=== PATIENT | male | born 1950 | race Caucasian/White ===

== ENCOUNTER 2016-11-05 14:11 | Observation (INO) ==
[2016-11-05] MEDS ORDERED: Naloxone 0.4 MG/ML INJ IVP PRN (16:13)
[2016-11-05] MEDS ORDERED: Ondansetron 4 MG/2 ML VIAL IVP PRN (16:13)
[2016-11-05] MEDS ORDERED: Ketorolac 15 MG/ML VIAL IVP PRN (16:13)
[2016-11-05] MEDS: *HR* Promethazine 25 MG/ML VIAL IVP PRN (16:37)
[2016-11-05] MEDS: *HR* HYDROmorphone (PF) 1 MG/ML SYRINGE IVP PRN ×2 (16:37→22:53)
[2016-11-05] MEDS: Gabapentin 400 MG CAPSULE PO SCH ×2 (16:37→22:48)
--- NOTE | 2016-11-05 17:03 | Urology History & Physical ---
Date of Encounter: 11/05/16 Time of Encounter: 17:01 Assessment and Plan (1) Ureteral stone with hydronephrosis Current Visit: Yes Status: Acute we discussed trial of passage bc the stone is 5 mm. the pain has been too severe for him to attempt trial of passage and he requires surgical intervention. will proceed with a ureteroscopic stone extraction. he understands there is a 10% chance I will not be able to reach or extract the stone and would require a 2nd surgery. we discussed risk for injury to the urinary tract, perforation, stricture, stent complications/discomfort, UTI. we discussed ESWL as an alternative treatment. (2) Flank pain Current Visit: Yes Status: Acute History of Present Illness Chief complaint: flank pain HPI: Mr. Kuhn is a 65 year old male transferred from [facility] with a 5 mm proximal ureteral stone. labs OK but issues with soto control. no fever. N/V. no hx of stones. Medications and Allergies Clorazepate [Tranxene] 7.5 mg PO TID 11/05/16 [History] Gabapentin [Neurontin] 400 mg PO TID 11/05/16 [History] 3 Allergy/AdvReac Type Severity Reaction Status Date / Time No Known Allergies Allergy Verified 11/05/16 16:09 Review of Systems - Constitutional no chills, no fever(s) - EENT Nose, mouth and throat: no dizziness - Cardiovascular no chest pain, no dyspnea - Respiratory no cough - Gastrointestinal abdominal pain, nausea, vomiting - Genitourinary flank pain - Musculoskeletal back pain - Integumentary no erythema - Neurological no confusion - Psychiatric no anxiety - Hematologic/Lymphatic no easy bleeding - Allergic/Immunologic no throat swelling Exam Initial Vital Signs Temp Pulse Resp BP Pulse Ox 98.1 F 78 16 171/93 95 11/05/16 16:08 11/05/16 16:08 11/05/16 16:08 11/05/16 16:08 11/05/16 16:08 - General physical appearance Present: well developed, no distress, moderate pain - Eyes Present: PERRL - ENT Present: normal nares - Neck Present: no masses - Respiratory Present: normal respiratory effort - Cardiovascular Cardiovascular exam IM: RRR - Abdomen Abdomen: Present: soft - Integumentary Present: no rash - Neurologic Present: normal coordination. Absent: disoriented, confused - Musculoskeletal Present: normal gait Urology Results - Labs All other labs normal.
[2016-11-05 17:13] LABS: Basophils % 0.4 %; Eosinophils # 0.1 K/mcL (0.0-0.6); Eosinophils % 1.1 %; Hematocrit 45.1 % (37.5-50.1); Hemoglobin 14.5 g/dL (12.9-16.9); Immature Granulocytes % 0.3 % (0-4); Lymphocytes # 1.9 K/mcL (0.6-4.6); Lymphocytes % 20.4 %; Mean Corpuscular HGB Conc 32.2 g/dL (31.6-35.5); Mean Corpuscular Hemoglobin 30.1 pg (28.0-33.3); Mean Corpuscular Volume 93.8 fL (83.0-100.0); Mean Platelet Volume 10.9 fL (9.4-12.4); Monocytes # 0.7 K/mcL (0.0-1.3); Monocytes % 7.1 %; Neutrophils # 6.5 K/mcL (1.6-8.9); Platelet Count 253 K/mcL (140-400); Red Blood Count 4.81 M/mcL (4.19-5.50); Red Cell Distribution Width 12.1 % (11.5-14.5); Segmented Neutrophils % 70.7 %
[2016-11-05 17:20] LABS: BUN/Creatinine Ratio 12 (6-26); Blood Urea Nitrogen 16 mg/dL (8-26); Calcium 8.4 mg/dL (8.6-10.8); Carbon Dioxide 24 mEq/L (19-29); Chloride 107 mEq/L (98-109); Glucose 113 mg/dL (70-99); Osmolality,Calculated 290 (280-300); Potassium 3.8 mEq/L (3.5-4.5); Sodium 139 mEq/L (136-145); eGFR For African Americans > 60 (> 60); eGFR For Non-African Americans 52 (> 60)
[2016-11-05] MEDS ORDERED: *HR* HYDROcodone/Acet 5/325 mg TABLET PO PRN (20:00)
--- NOTE | 2016-11-06 07:24 | Urology Progress Note ---
Date of Encounter: 11/06/16 Time of Encounter: 07:23 - Assessment and Plan (1) Ureteral stone with hydronephrosis Current Visit: Yes Status: Acute Assessment and plan: proceed with stone extraction today (2) Flank pain Current Visit: Yes Status: Acute Progress Note Subjective: pain is less Narrative: resting comfortably overnight. Objective Initial Vital Signs Temp Pulse Resp BP Pulse Ox 98.1 F 78 16 171/93 95 11/05/16 16:08 11/05/16 16:08 11/05/16 16:08 11/05/16 16:08 11/05/16 16:08 - General physical appearance Present: well developed, no distress - Labs 11/05/16 16:32 11/05/16 16:32 Diabetes panel 11/05/16 Range/Units 16:32 Sodium 139 (136-145) mEq/L Potassium 3.8 (3.5-4.5) mEq/L Chloride 107 (98-109) mEq/L Carbon Dioxide 24 (19-29) mEq/L BUN 16 (8-26) mg/dL Creatinine 1.36 H (0.72-1.25) mg/dL Glucose 113 H (70-99) mg/dL Calcium 8.4 L (8.6-10.8) mg/dL Calcium panel 11/05/16 Range/Units 16:32 Calcium 8.4 L (8.6-10.8) mg/dL Pituitary panel 11/05/16 Range/Units 16:32 Sodium 139 (136-145) mEq/L Potassium 3.8 (3.5-4.5) mEq/L Chloride 107 (98-109) mEq/L Carbon Dioxide 24 (19-29) mEq/L BUN 16 (8-26) mg/dL Creatinine 1.36 H (0.72-1.25) mg/dL Glucose 113 H (70-99) mg/dL Calcium 8.4 L (8.6-10.8) mg/dL Adrenal panel 11/05/16 Range/Units 16:32 Sodium 139 (136-145) mEq/L Potassium 3.8 (3.5-4.5) mEq/L Chloride 107 (98-109) mEq/L Carbon Dioxide 24 (19-29) mEq/L BUN 16 (8-26) mg/dL Creatinine 1.36 H (0.72-1.25) mg/dL Glucose 113 H (70-99) mg/dL Calcium 8.4 L (8.6-10.8) mg/dL Consult Discharge Plan - Plan Referrals: Yakov Aguirre MD [Partnered Physician] -
[2016-11-06] MEDS ORDERED: 0.9 % Sodium Chloride 1,000 ML IVC SCH ×2 (07:30→16:42)
[2016-11-06] MEDS: Gabapentin 400 MG CAPSULE PO SCH (07:46)
[2016-11-06] MEDS: *HR* Promethazine 25 MG/ML VIAL IVP PRN (07:46)
[2016-11-06] MEDS: *HR* HYDROmorphone (PF) 1 MG/ML SYRINGE IVP PRN ×2 (07:46→11:53)
--- NOTE | 2016-11-06 13:30 | Anesthesia Evaluation PreOp ---
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 Other Medical History: Denies Any Significant HX Anesthesia History: No Prior Anesthetic Complications, Past Anesthesia Alcohol Use: none Drug use: none Medications and Allergies Clorazepate [Tranxene] 7.5 mg PO TID 11/05/16 [History] Gabapentin [Neurontin] 400 mg PO TID 11/05/16 [History] 3 Allergy/AdvReac Type Severity Reaction Status Date / Time No Known Allergies Allergy Verified 11/05/16 16:09 - Meds/Allergy Pre-op Review Medications Reviewed: Yes Allergies Reviewed: Yes Beta Blockers on Current Med List: No Anesthesia Results - Labs 11/05/16 16:32 11/05/16 16:32 Anesthesia Exam O2 Sat Weight 77.7 kg O2 Sat by Pulse Oximetry 93 O2 Sat by Pulse Oximetry 93 O2 Sat by Pulse Oximetry 93 O2 Sat by Pulse Oximetry 95 O2 Sat by Pulse Oximetry 96 O2 Sat by Pulse Oximetry 95 Vital Signs Temp Pulse Resp BP Pulse Ox 98.1 F 78 16 171/93 95 11/05/16 16:08 11/05/16 16:08 11/05/16 16:08 11/05/16 16:08 11/05/16 16:08 Vital Signs/O2 Sat/Glucose, Most Current Temp Pulse Resp BP Pulse Ox 11/06/16 11:43 99.5 F 91 18 156/88 93 Weight: 77 NPO (# of Hours): >8 Anesthesia Assess/Plan ASA Score: 2 Modified [place] Scale for Level of Consciousness: Cooperative, oriented, and tranquil Anesthetic Plan: General Monitoring Plan: Standard Monitors Recovery Plan: PACU <Katie Arreola - Last Filed: 11/06/16 14:08> Date of Encounter: 11/06/16 - Past History Other Medical History: Renal (renal stones in the past) Anesthesia History: Past Anesthesia (hernia, back surgery, shock-wave lithrotripsy, tonsils), Problems (vertigo after lithrotripsy; otherwise no complications; did well after all other surgeries) Anesthesia Results - Labs 11/05/16 16:32 11/05/16 16:32 Anesthesia Exam - HEENT Pupil (Motor): Pupils equal, EOMI Mallampati: III Teeth: Normal Oral Opening: Greater than 3 - 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
[2016-11-06] MEDS ORDERED: *HR* FentaNYL (PF) 100 MCG/2 ML VIAL ONE (13:41)
[2016-11-06] MEDS ORDERED: *HR* Propofol 200 MG/20 ML VIAL IVP ONE (13:42)
[2016-11-06] MEDS ORDERED: *HR* Midazolam HCl 2 MG/2 ML VIAL ONE (13:42)
[2016-11-06] MEDS ORDERED: Dexamethasone 4 MG/ML VIAL ONE (13:43)
[2016-11-06] MEDS ORDERED: Ondansetron 4 MG/2 ML VIAL ONE (13:43)
[2016-11-06] MEDS ORDERED: Lidocaine -MPF 2% 2 ML VIAL ONE (13:43)
[2016-11-06] MEDS ORDERED: Lidocaine -MPF 4% 5 ML AMPUL ONE (14:21)
[2016-11-06] MEDS ORDERED: *HR* Promethazine 25 MG/ML VIAL IVP PRN ×2 (15:02→16:42)
[2016-11-06] MEDS ORDERED: Dexamethasone 4 MG/ML VIAL IVP ONE (15:02)
[2016-11-06] MEDS ORDERED: *HR* Morphine 2 MG/ML SYRINGE IVP PRN (15:02)
[2016-11-06] MEDS ORDERED: Ondansetron 4 MG/2 ML VIAL IVP ONE (15:02)
[2016-11-06] MEDS ORDERED: *HR* Labetalol 20 MG/4 ML SYRINGE IVP PRN (15:02)
--- NOTE | 2016-11-06 15:45 | Operative Note ---
Date of procedure: 11/06/16 Pre-op diagnosis: Right proximal ureteral stone Post-op diagnosis: same Procedure: Right ureteroscopic stone extraction with holmium laser lithotripsy Right retrograde pyelogram Right double-J stent placement Anesthesia: GETA Surgeon: Yakov Aguirre Estimated blood loss (cc): 0 Specimen: Stone Condition: stable Disposition: PACU Procedure in Detail: PROCEDURE IN DETAIL: Patient was taken back to the operating room, positioned supine on the operating table. Anesthesia was applied without complication. They were moved into dorsal lithotomy. Careful attention was maintained to cushion all pressure points for patient's safety. They were prepped and draped in sterile fashion. Time-out was performed with the proper patient and procedure. A 21-Guamanian rigid cystoscope was inserted into the bladder without difficulty. Systematic examination of bladder revealed no abnormalities. The ureteral orifice was cannulated using a 5-Guamanian ureteral Catheter and a retrograde pyelogram was performed using Isovue. A filling defect was identified which corresponded to the stone in the mid to proximal ureter. At that point, a zip wire was placed through the 5-Guamanian and confirmed in the renal pelvis with fluoroscopy. An 8-10 dilator was then placed over the zip wire to passively dilate the ureteral orifice. A flexible ureteroscope was carefully inserted over the wire and into the ureter. The stone had migrated into the renal pelvis but I was able to guide the ureteroscope to its location. At that point, the stone was encountered and I felt that it required fragmentation for safe extraction. A 200 micron holmium laser fiber on a setting of 8 and 800 was used to fragment the stone into multiple pieces. The fragments were individually basketed out of the renal pelvis with a 1.9 tipless basket. All stone in the ureter was removed. A 4.8 x 26 ureteral stent was placed over the zip wire under fluoroscopy without complication. The bladder was drained along with the stone fragments. They were collected and sent for stone analysis. No string was left attached to the stent.
--- NOTE | 2016-11-06 15:48 | Discharge Summary ---
Date of Encounter: 11/06/16 Time of Encounter: 15:46 - Discharge Diagnosis (1) Ureteral stone with hydronephrosis Priority: Primary Status: Resolved (2) Flank pain Priority: Secondary Status: Resolved - Discharge Medications Prescriptions: HYDROcodone/Acet 5/325 mg [[place] 5-325 mg] 1 tab PO Q4HR PRN #15 tab PRN Reason: MODERATE PAIN Phenazopyridine HCl [Pyridium] 200 mg PO TIDAC PRN #20 tab PRN Reason: burning with urination Home Medications: Clorazepate [Tranxene] 7.5 mg PO TID 11/05/16 [History] Gabapentin [Neurontin] 400 mg PO TID 11/05/16 [History] HYDROcodone/Acet 5/325 mg [[place] 5-325 mg] 1 tab PO Q4HR PRN #15 tab 11/06/16 [ Rx] Phenazopyridine HCl [Pyridium] 200 mg PO TIDAC PRN #20 tab 11/06/16 [Rx] Allergies/Adverse Reactions: 3 Allergy/AdvReac Type Severity Reaction Status Date / Time No Known Allergies Allergy Verified 11/05/16 16:09 Labs on day of discharge: Labs from last 24 hours 11/05/16 11/05/16 16:32 16:32 WBC 9.1 RBC 4.81 Hgb 14.5 Hct 45.1 MCV 93.8 MCH 30.1 MCHC 32.2 RDW 12.1 Plt Count 253 MPV 10.9 Immature Gran % 0.3 Seg Neutrophils % 70.7 Lymphocytes % 20.4 Monocytes % 7.1 Eosinophils % 1.1 Basophils % 0.4 Neutrophils # 6.5 Lymphocytes # 1.9 Monocytes # 0.7 Eosinophils # 0.1 Basophils # 0.0 Sodium 139 Potassium 3.8 Chloride 107 Carbon Dioxide 24 BUN 16 Creatinine 1.36 H Est GFR ( Amer) > 60 Est GFR (Non-Af Amer) 52 L BUN/Creatinine Ratio 12 Glucose 113 H Calculated Osmolality 290 Calcium 8.4 L - Impressions ITS Impressions KUB X-Ray 11/05/16 16:16 IMPRESSION: 6 mm mid right ureteral calculus is in unchanged position. D/ /05/2016 19:08:26 Noemí Ward MD / [email or web address] Interpreting Provider: Noemí Ward MD Date of admission: 11/05/16 15:22 Primary care physician: Deisy Brannon CNP Discharging clinician: Yakov Aguirre Anticipated date of discharge: 11/06/16 - Patient Status Disposition: Home, Self-Care Condition: Good Functional capacity at discharge: independent ambulation Overall status at discharge: patient is progressing back to baseline - Discharge Instructions Follow Up With: Yakov Aguirre MD [Partnered Physician] - (2 weeks for cystoscopy and stent removal) Additional Instructions: Expect stent discomfort including urgency, frequency, burning on urination, blood in the urine and light pain in the flank. Call if symptoms are excessive Call if fever over 101 Stay hydrated with water as much as possible - Diet and Activity Activity: increase activity as tolerated Diet: advance to your usual diet - Hospital Course Hospital course: Mr. Kuhn is a 65 year old male status post ureteroscopic stone extraction and stent placement. No complications. Plan to discharge either tonight or tomorrow when pain is controlled and the patient is comfortable with discharge - Time Spent with Patient Total time spent providing and/or coordinating discharge services: Exam Initial Vital Signs Temp Pulse Resp BP Pulse Ox 98.1 F 78 16 171/93 95 11/05/16 16:08 11/05/16 16:08 11/05/16 16:08 11/05/16 16:08 11/05/16 16:08 - General physical appearance Present: well developed, no distress
--- NOTE | 2016-11-06 16:11 | Anesthesia Evaluation Post Op ---
Date of Encounter: 11/06/16 Time of Encounter: 16:11 - Vital Signs Vital Signs: Vital Signs/O2 Sat/Glucose, Most Current Temp Pulse Resp BP Pulse Ox 11/06/16 16:00 73 16 154/93 100 11/06/16 15:50 74 14 151/91 96 11/06/16 15:40 98.7 F 90 18 155/89 94 - Lungs Lungs: Clear Ascult./Percussion - Airway Airway: Non-obstructed - Cardiovascular Regular Rate - Mental Status Mental Status: Alert & Oriented, Answers Appropriately - Pain Pain Scale: 2 - Nausea Vomiting Nausea Vomiting: Not Present - Hydration Hydration: Ice chips - Discharge PostOp Status: Transfer Patient to floor
[2016-11-06] MEDS ORDERED: Ketorolac 15 MG/ML VIAL IVP PRN (16:42)
[2016-11-06] MEDS ORDERED: *HR* HYDROmorphone (PF) 1 MG/ML SYRINGE IVP PRN (16:42)
[2016-11-06] MEDS ORDERED: *HR* HYDROcodone/Acet 5/325 mg TABLET PO PRN (16:42)
[2016-11-06] MEDS ORDERED: Ondansetron 4 MG/2 ML VIAL IVP PRN (16:42)
[2016-11-06] MEDS ORDERED: Naloxone 0.4 MG/ML INJ IVP PRN (16:42)
[2016-11-06 19:00] VITALS: BP 158/90
[2016-11-06] MEDS ORDERED: Gabapentin 400 MG CAPSULE PO SCH (21:00)
== END 2016-11-06 20:00 | disposition home or self-care (01) ==
LOC: 3ANU
PROVIDERS: ADMIT Urology; ATTEND Urology

== ENCOUNTER 2017-04-09 03:05 | Observation (INO) ==
[2017-04-09] MEDS ORDERED: Aspirin 81 MG TAB.CHEW PO ONE (03:12)
[2017-04-09] MEDS ORDERED: Nitroglycerin 0.4 MG TAB.SUBL SL PRN (03:30)
--- NOTE | 2017-04-09 03:33 | Emergency Department Note ---
Disposition Clinical Impression: Chest pain, rule out acute myocardial infarction Disposition: Admitted As Inpatient Condition: Fair Referrals: Amita Dior CNP [Primary Care Provider] - Forms: ED Satisfaction Letter Time of Disposition: 05:47 Chest Pain HPI - General Chief Complaint: ED Chest Pain Stated Complaint: Chest/ABD/Back Pain Time Seen by Provider: 04/09/17 03:11 Source: patient Limitations: no limitations Vital Signs Reviewed: Yes Nursing Notes Reviewed: Yes - History of Present Illness HPI Narrative: Alert and oriented 66-year-old male presents for evaluation of diffuse anterior chest and epigastric pain that radiates into the back. Symptoms began at approximately 9:00 yesterday evening. He states his symptoms lasted close to one hour before resolution without intervention. He states that the pain returned just prior to arrival area he was at rest when both incidences occurred. He complains of associated diaphoresis but denies any fever, chills, nausea, vomiting, shortness of breath, cough, palpitations, or hemoptysis. He denies any diarrhea or constipation. He is unable to describe the pain but rates it a 10 out of 10 on a 10 point scale. He denies any known aggravating or alleviating factors. Pt complaint: chest pain Onset (ago): hour(s) Duration: gradually worsening Onset: during rest Pain Location: substernal, left chest, epigastric Severity: severe Severity scale (1-10): 10 Quality: other (Unable to describe) Pain Radiation: back Improves with: movement Worsens with: nothing Associated symptoms: Reports: diaphoresis. Denies: nausea, vomiting, dyspnea, syncope, palpitations, fever, cough Treatments prior to arrival chest pain: none - Related Data Home Medications Medication Instructions Recorded Confirmed Clorazepate [Tranxene] 7.5 mg PO TID 11/05/16 11/05/16 Gabapentin [Neurontin] 400 mg PO TID 11/05/16 11/05/16 Previous Rx's Medication Instructions Recorded HYDROcodone/Acet 5/325 mg [[place] 1 tab PO Q4HR PRN #15 tab 11/06/16 5-325 mg] Phenazopyridine HCl [Pyridium] 200 mg PO TIDAC PRN #20 tab 11/06/16 HYDROcodone/Acet 5/325 mg [[place] 1 tab PO Q6H PRN #12 tab 03/12/17 5-325 mg] Allergies Allergy/AdvReac Type Severity Reaction Status Date / Time No Known Allergies Allergy Verified 11/05/16 16:09 All systems ED: reviewed and negative except as stated. Constitutional: Denies: fever, chills, weakness, weight change Eyes: Denies: eye pain, eye discharge, vision change ENT ED: Denies: ear pain, throat pain, dental pain, hearing loss, epistaxis, congestion, dysphagia Cardiovascular: Reports: as per HPI, chest pain. Denies: palpitations, dyspnea on exertion, edema, syncope Respiratory: Denies: cough, dyspnea, wheezes, hemoptysis, stridor Gastrointestinal: Reports: as per HPI, abdominal pain. Denies: nausea, vomiting , diarrhea, constipation, hematemesis, melena, hematochezia Genitourinary: Denies: urgency, dysuria, frequency, hematuria Musculoskeletal: Denies: back pain, neck pain, arthralgia, myalgia Integumentary: Denies: rash, abrasion, lesions Neurological: Denies: headache, weakness, numbness, paresthesias, confusion, abnormal gait, vertigo Psychiatric: Denies: anxiety, depression, suicidal thoughts, homicidal thoughts , auditory hallucinations, visual hallucinations Endocrine: Denies: fatigue Hematological/Lymphatic: Denies: easy bleeding, easy bruising Allergic/Immunologic: Denies: facial swelling, urticaria Chest Pain PMH - Past Medical History Medical history: Reports: arthritis, kidney stones, migraine Surgical history: Reports: other Psychiatric history: Reports: anxiety, depression - Social History Smoking Status: Never smoker Alcohol use: Reports: none Drug use: Reports: none Physical Exam - General Limitations: no limitations General appearance: alert, in no apparent distress - Head Head exam: atraumatic, normocephalic, normal inspection - Eye Eye exam: Present: normal appearance, PERRL, EOMI. Absent: nystagmus - ENT ENT exam: mucous membranes moist - Neck Neck exam: Present: normal inspection, full ROM, trachea midline - Respiratory Respiratory exam: Present: normal lung sounds bilaterally. Absent: respiratory distress, wheezes, stridor, accessory muscle use, prolonged expiratory phase - Cardiovascular Cardiovascular exam: Present: regular rate, normal rhythm, normal heart sounds - Abdominal Exam Abdominal exam: Present: soft, tenderness, guarding, normal bowel sounds. Absent: distention, rebound, rigidity Abdominal tenderness: Present: diffuse - Extremities Exam Extremities exam: Present: normal inspection, full ROM. Absent: tenderness, pedal edema - Neurological Exam Neurological exam: Present: alert, oriented X3 - Psychiatric Psychiatric exam: Present: normal affect, normal mood - Skin Skin exam: Present: warm, dry, intact, normal color Course Course Narrative: 0325: Dr. Ansari, ED attending spoke with Dr. Dubois, 3rd mate regarding isolated ST elevation in lead V2. A copy of the patient' s EKG has been sent to Dr. Dubois for review and recommendations. We are currently awaiting a return call from him regarding this matter. 0358: After the patient stated complete resolution of chest and epigastric abdominal pain after a single nitroglycerin tablet, a repeat EKG was performed. The isolated ST elevation in lead V2 has resolved on repeat EKG. At the same time, Dr. Dubois, had returned a call regarding the initial EKG. Dr. Ansari discussed the resolution of ST elevation along with complete resolution of the patient's chest pain. Dr. Dubois stated that the patient does not meet criteria for ST elevation [place] however he does recommend the patient be began on heparin, aspirin, Aggrastat, and Plavix. - Reevaluation(s) Reevaluation #1: The patient states complete resolution of chest and abdominal pain after the administration of one sublingual nitroglycerin. Time: 03:53 Vital Signs Temperature 98.0 F 04/09/17 03:07 Pulse Rate 75 04/09/17 03:07 Respiratory Rate 18 04/09/17 03:07 Blood Pressure 200/101 04/09/17 03:07 O2 Sat by Pulse Oximetry 99 04/09/17 03:07 Temperature 98.0 F 04/09/17 03:07 Pulse Rate 73 04/09/17 05:09 Respiratory Rate 16 04/09/17 05:09 Blood Pressure 127/75 04/09/17 05:09 O2 Sat by Pulse Oximetry 96 04/09/17 05:09 Oxygen Delivery Oxygen Delivery Room Air Chest Pain - Medical Records Medical records reviewed: Yes I reviewed the patient's medical records. - Lab Data Lab results reviewed: Yes I reviewed the patient's lab results. Result diagrams: 04/09/17 04:04 04/09/17 04:04 Lab Results 04/09/17 04/09/1704/09/18 Range/Units 03:30 04:04 04:04 WBC 11.0 (4.3-11.1) K/mcL RBC 4.49 (4.19-5.50) M/mcL Hgb 13.9 (12.9-16.9) g/dL Hct 42.3 (37.5-50.1) % MCV 94.2 (83.0-100.0) fL MCH 31.0 (28.0-33.3) pg MCHC 32.9 (31.6-35.5) g/dL RDW 12.0 (11.5-14.5) % Plt Count 232 (140-400) K/mcL MPV 11.1 (9.4-12.4) fL Immature Gran % 0.4 (0-4) % Seg Neutrophils % 73.3 % Lymphocytes % 17.8 % Monocytes % 6.3 % Eosinophils % 1.7 % Basophils % 0.5 % Neutrophils # 8.1 (1.6-8.9) K/mcL Lymphocytes # 2.0 (0.6-4.6) K/mcL Monocytes # 0.7 (0.0-1.3) K/mcL Eosinophils # 0.2 (0.0-0.6) K/mcL Basophils # 0.1 (0.0-0.2) K/mcL PT 10.8 (9.4-12.1) Seconds INR 1.0 APTT 30.4 (26.0-36.0) Seconds Sodium (136-145) mEq/L Potassium (3.5-5.1) mEq/L Chloride (98-107) mEq/L Carbon Dioxide (23-29) mEq/L BUN (8-23) mg/dL Creatinine (0.70-1.30) mg/dL Est GFR ( Amer) (> 60) Est GFR (Non-Af Amer) (> 60) BUN/Creatinine Ratio (6-26) Glucose (70-105) mg/dL Calculated Osmolality (280-300) Calcium (8.6-10.3) mg/dL Total Bilirubin (0.3-1.0) mg/dL AST (13-39) Units/L ALT (7-52) Units/L Alkaline Phosphatase (34-104) Units/L Troponin I (< 0.04) ng/mL Serum Total Protein (6.4-8.9) g/dL Albumin (3.5-5.7) g/dL Globulin (2.4-3.5) g/dL Albumin/Globulin Ratio (1.1-2.2) Lipase (11-82) Units/L Urine Color Yellow (Yellow) Urine Clarity Cloudy A (Clear) Urine pH 7.5 (5.0-8.0) pH Units Ur Specific [place] 1.019 (1.010-1.025) Urine Protein Negative (Neg-Trace) mg/dL Urine Glucose (UA) Normal (Normal) mg/dL Urine Ketones Negative (Negative) mg/dL Urine Blood Negative (Negative) Urine Nitrite Negative (Negative) Urine Bilirubin Negative (Negative) Urine Urobilinogen Normal (Normal) mg/dL Ur Leukocyte Esterase Negative (Negative) Urine Microscopic RBC 0-3 (0-3) per hpf Urine Microscopic WBC 0-3 (0-3) per hpf Ur Squamous Epith Cells None Seen (None-Few) per lpf Urine Bacteria None Seen (None-Few) per hpf Hyaline Casts None Seen (None-Few) per lpf Ur Culture Indicated? NO (NO) 04/09/17 04/09/17 Range/Units 04:04 04:04 WBC (4.3-11.1) K/mcL RBC (4.19-5.50) M/mcL Hgb (12.9-16.9) g/dL Hct (37.5-50.1) % MCV (83.0-100.0) fL MCH (28.0-33.3) pg MCHC (31.6-35.5) g/dL RDW (11.5-14.5) % Plt Count (140-400) K/mcL MPV (9.4-12.4) fL Immature Gran % (0-4) % Seg Neutrophils % % Lymphocytes % % Monocytes % % Eosinophils % % Basophils % % Neutrophils # (1.6-8.9) K/mcL Lymphocytes # (0.6-4.6) K/mcL Monocytes # (0.0-1.3) K/mcL Eosinophils # (0.0-0.6) K/mcL Basophils # (0.0-0.2) K/mcL PT (9.4-12.1) Seconds INR APTT (26.0-36.0) Seconds Sodium 136 (136-145) mEq/L Potassium 3.7 (3.5-5.1) mEq/L Chloride 105 (98-107) mEq/L Carbon Dioxide 24 (23-29) mEq/L BUN 16 (8-23) mg/dL Creatinine 0.83 (0.70-1.30) mg/dL Est GFR ( Amer) > 60 (> 60) Est GFR (Non-Af Amer) > 60 (> 60) BUN/Creatinine Ratio 19 (6-26) Glucose 124 H (70-105) mg/dL Calculated Osmolality 285 (280-300) Calcium 8.9 (8.6-10.3) mg/dL Total Bilirubin 0.9 (0.3-1.0) mg/dL AST 164 H (13-39) Units/L ALT 99 H (7-52) Units/L Alkaline Phosphatase 97 (34-104) Units/L Troponin I < 0.03 (< 0.04) ng/mL Serum Total Protein 6.6 (6.4-8.9) g/dL Albumin 3.9 (3.5-5.7) g/dL Globulin 2.7 (2.4-3.5) g/dL Albumin/Globulin Ratio 1.4 (1.1-2.2) Lipase 113 H (11-82) Units/L Urine Color (Yellow) Urine Clarity (Clear) Urine pH (5.0-8.0) pH Units Ur Specific [place] (1.010-1.025) Urine Protein (Neg-Trace) mg/dL Urine Glucose (UA) (Normal) mg/dL Urine Ketones (Negative) mg/dL Urine Blood (Negative) Urine Nitrite (Negative) Urine Bilirubin (Negative) Urine Urobilinogen (Normal) mg/dL Ur Leukocyte Esterase (Negative) Urine Microscopic RBC (0-3) per hpf Urine Microscopic WBC (0-3) per hpf Ur Squamous Epith Cells (None-Few) per lpf Urine Bacteria (None-Few) per hpf Hyaline Casts (None-Few) per lpf Ur Culture Indicated? (NO) - Radiology Data Radiology results reviewed: Yes I reviewed the patient's radiology results. - EKG Data EKG attestation: Yes I reviewed and interpreted this EKG. EKG results narrative: EKG reviewed by Dr. Ansari as well. EKG shows a sinus rhythm at a rate of 74 bpm, MS interval 130, QRS duration 95, QT/QTc interval 355/383. No ectopy noted. Single isolated ST segment elevation noted in lead V2. Attestation Statement - Attestation Attestation: DR Ansari note: Pt seen in conjunction w/ PA Dinh [place]; please see his charting for complete documentation; I agree w/ pt's treatment and disposition; Please see his charting for complete documentation; face to face time spent w/ pt; case discussed on arrival w/ the interventional cardiology Dr Trejo due to ST elevation in lead v and he stated that the ekg did not meet criteria to call a STEMI, and requested the meds we gave; pt's pain and ekg changes resolved after 1 nitro tab; 1st troponin unremarkable; pt reports a prior cath w/o stents approx 5 yrs ago @ [facility];
[2017-04-09 04:04] LABS: Bilirubin,Urine Negative (Negative); Blood,Urine Negative (Negative); Clarity,Urine Cloudy (Clear); Color,Urine Yellow (Yellow); Glucose,Urine (UA) Normal (Normal); Ketones,Urine Negative (Negative); Leukocyte Esterase,Urine Negative (Negative); Nitrite,Urine Negative (Negative); PH,Urine 7.5 pH Units (5.0-8.0); Protein,Urine Negative (Neg-Trace); Specific Gravity,Urine 1.019 (1.010-1.025); Urobilinogen,Urine Normal (Normal)
[2017-04-09 04:14] LABS: Bacteria,Urine None Seen per hpf (None-Few); Hyaline Casts,Urine None Seen per lpf (None-Few); RBC,Urine 0-3 per hpf (0-3); Squamous Epithelial Cell,Urine None Seen per lpf (None-Few); WBC,Urine 0-3 per hpf (0-3)
[2017-04-09] MEDS ORDERED: *HR* Heparin 5,000 UNIT/ML VIAL IVP PRN ×2 (04:14)
[2017-04-09] MEDS ORDERED: *HR* Heparin 5,000 UNIT/ML VIAL IVP ONE (04:14)
[2017-04-09] MEDS ORDERED: Tirofiban 0.05 MG/1 ML (BOLUS FROM BAG) IV ONE (04:14)
[2017-04-09] MEDS ORDERED: Heparin 25,000 UNIT/500 ML D5W 25,000 UNIT/500 ML BAG IVC SCH (04:15)
[2017-04-09] MEDS ORDERED: Tirofiban 12.5 MG/250ML 12.5 MG/250 ML BAG IVC SCH (04:15)
[2017-04-09 04:22] LABS: Hematocrit 42.3 % (37.5-50.1); Hemoglobin 13.9 g/dL (12.9-16.9); Immature Granulocytes % 0.4 % (0-4); Lymphocytes % 17.8 %; Mean Corpuscular HGB Conc 32.9 g/dL (31.6-35.5); Mean Corpuscular Volume 94.2 fL (83.0-100.0); Mean Platelet Volume 11.1 fL (9.4-12.4); Platelet Count 232 K/mcL (140-400); Red Blood Count 4.49 M/mcL (4.19-5.50); Segmented Neutrophils % 73.3 %
[2017-04-09 04:23] LABS: Basophils # 0.1 K/mcL (0.0-0.2); Basophils % 0.5 %; Eosinophils # 0.2 K/mcL (0.0-0.6); Eosinophils % 1.7 %; Monocytes # 0.7 K/mcL (0.0-1.3); Monocytes % 6.3 %; Neutrophils # 8.1 K/mcL (1.6-8.9)
[2017-04-09 04:28] LABS: Prothrombin Time 10.8 Seconds (9.4-12.1)
[2017-04-09 04:31] LABS: Activated Partial Thrombo Time 30.4 Seconds (26.0-36.0)
[2017-04-09 04:37] LABS: Alanine Aminotransferase 99 Units/L (7-52); Albumin 3.9 g/dL (3.5-5.7); Albumin/Globulin Ratio 1.4 (1.1-2.2); Alkaline Phosphatase 97 Units/L (34-104); Aspartate Amino Transferase 164 Units/L (13-39); BUN/Creatinine Ratio 19 (6-26); Bilirubin,Total 0.9 mg/dL (0.3-1.0); Blood Urea Nitrogen 16 mg/dL (8-23); Calcium 8.9 mg/dL (8.6-10.3); Carbon Dioxide 24 mEq/L (23-29); Chloride 105 mEq/L (98-107); Glucose 124 mg/dL (70-105); Osmolality,Calculated 285 (280-300); Potassium 3.7 mEq/L (3.5-5.1); Sodium 136 mEq/L (136-145); Total Protein 6.6 g/dL (6.4-8.9); eGFR For African Americans > 60 (> 60); eGFR For Non-African Americans > 60 (> 60)
[2017-04-09 04:38] LABS: Globulin 2.7 g/dL (2.4-3.5); Lipase 113 Units/L (11-82)
[2017-04-09] MEDS: Gabapentin 400 MG CAPSULE PO SCH ×4 (08:28→23:44)
[2017-04-09] MEDS ORDERED: Naloxone 0.4 MG/ML INJ IVP PRN ×2 (08:35→08:36)
[2017-04-09] MEDS ORDERED: *HR* OxyCODONE Immed Rel 5 MG TABLET PO PRN (08:36)
[2017-04-09] MEDS ORDERED: Acetaminophen 325 MG TABLET PO PRN (08:36)
[2017-04-09] MEDS ORDERED: Ondansetron 4 MG/2 ML VIAL IVP PRN (08:36)
[2017-04-09 09:19] LABS: Chol/HDL Ratio 3.8 (0-4.9)
--- NOTE | 2017-04-09 09:27 | Internal Med History&Physical ---
Date of Encounter: 04/09/17 Time of Encounter: 09:26 Assessment and Plan (1) Angina pectoris Current visit: Yes Status: Acute EKG personally reviewed: NSR with no St segment changes X2 Per ER team, they had consulted with Dr. Jenkins, pig sticker drone operator last night who has ordered heparin, aggrastat and plavix. Initial troponin is negative, repeat troponin done at my time of review is negative. A1C is unremarkable Lipid panel is unremarkable CXR is clear. We will admit the patient to observation for angina work up pending cardiology evaluation, at this time, I believe he does not need the heparin and tirofaban drips, we will hold these till cardiology eval and continue ASA and lipitor. I have ordered an ECHO, patient will be kept NPO for a possible stress test if cardiology agrees. He is currently chest pain free, vital signs are stable. Dr. Velázquez has been paged (2) Chronic back pain Current visit: Yes Status: Chronic Continue home meds Qualifiers: Back pain location: back pain in unspecified location Back pain laterality : unspecified Qualified Code(s): M54.9 - Dorsalgia, unspecified; G89.29 - Other chronic pain; G89.29 - Other chronic pain (3) Ureteral stone with hydronephrosis Current visit: Yes Status: Chronic Chronic, stable (4) GERD (gastroesophageal reflux disease) Current visit: Yes Status: Chronic Start PPI avoid NSAIDS Patient has endoscopy and colonoscopy planned with PCP in one week No further interventions in this admission Qualifiers: Esophagitis presence: without esophagitis Qualified Code(s): K21.9 - Gastro -esophageal reflux disease without esophagitis Internal Medicine - H&P: HPI Chief complaint: Epigastric pain Admitted From: Home Plans for Post Hospital Care: Home History of present illness: Mr. Kuhn is a 66 year old male with PMH of nephrolithiasis and DJD with chronic neuralgia on gabapentin. The patient reports being in his usual state of health until yesterday while at rest. Developed acute sudden epigastric pain said to be 10 over 10 in severity , associated with diaphoresis, and radiating into his chest wall and his back. He denied associated shortness of breath, nausea, vomiting or impending doom. Chest pain did not radiate to his left arm or jaw. He reports that he has been having epigastric pain for about a year off and on however, yesterday the pain was uncontrolled and severe. There was no known relieving or aggravating factors. He did not have any neurologic symptoms associated. He is not physically active because of degenerative joint disease and chronic neuralgia. Patient reports having similar pain about 2 years ago and was worked up for cardiac etiology at an outside facility, Percocet to be negative. His chest pain was relieved by sublingual nitroglycerin in the ER. At the time of review, he has no chest pain. He denies family history of early cardiac disease or cardiac . He denies illicit drug use, he does not drink alcohol. He has never smoked He also reports occasional feeling of gas, he reports GERD like symptoms, no hematemesis or melena, he takes aleeve only ocassionally for his back pain, last use was over a year ago ROS is not contributory Past Med Surg Social Fam HX - Past Medical History Medical history: arthritis, kidney stones, migraine Psychiatric history: anxiety, depression - Past Surgical History Surgical History: other - Social History Smoking Status: Never smoker Smokeless Tobacco Status: No Alcohol use: none Drug use: none Internal Medicine - H&P: Meds Clorazepate [Tranxene] 7.5 mg PO TID 11/05/16 [History] Gabapentin [Neurontin] 400 mg PO TID 11/05/16 [History] 3 Allergy/AdvReac Type Severity Reaction Status Date / Time No Known Allergies Allergy Verified 11/05/16 16:09 All Systems PM: A 10-system review of systems was performed and is negative for pertinent findings except as documented above in the HPI. - Constitutional Constitutional: as per HPI - EENT Eyes: as per HPI Ears: as per HPI Nose, mouth and throat: as per HPI - Cardiovascular Cardiovascular ROS IM: as per HPI - Respiratory Respiratory: as per HPI - Gastrointestinal Gastrointestinal: as per HPI - Musculoskeletal Musculoskeletal ROS IM: as per HPI - Integumentary Integumentary IM: as per HPI - Neurological Neurological ROS: as per HPI - Hematologic/Lymphatic Hematologic/Lymphatic: no easy bruising - Constitutional Vitals: Temp Pulse Resp BP Pulse Ox 98.0 F 72 18 118/61 97 04/09/17 03:07 04/09/17 08:30 04/09/17 08:30 04/09/17 08:30 04/09/17 08:30 General appearance: Present: A&O X 3, pleasant, no acute distress Exam: Anxious appearing - Head Head exam: Present: atraumatic, normocephalic - Eye Eye exam: Present: PERRL, conjuntiva pink, sclera anicteric Pupils: Present: PERRL - Neck Neck exam general surgery: Present: supple, trachea midline. Absent: lymphadenopathy - Respiratory Respiratory exam: Present: CTAB. Absent: accessory muscle use, rales, rhonchi, wheezes - Cardiovascular Cardiovascular exam: Present: RRR, +S1, +S2. Absent: diastolic murmur, gallop, rubs, systolic murmur - GI/Abdominal GI/Abdominal exam: Present: normal bowel sounds, soft, no peritoneal signs. Absent: distended, tenderness - Extremities Exam Extremities exam: Present: warm, radial pulses palpable and symmetrical. Absent : calf tenderness, cyanotic, pedal edema - Neurological Exam Neurological exam: Present: alert, CN II-XII intact, oriented X3, no focal deficits. Absent: pronater drift, facial droop, speech deficit - Skin Skin exam: Present: dry, intact Internal Med - H&P Results - Labs CBC & Chem 7: 04/09/17 04:04 04/09/17 04:04 Labs: Cardiac Enzymes 04/09/17 Range/Units 08:58 Troponin I < 0.03 (< 0.04) ng/mL
[2017-04-09 09:31] LABS: Hemoglobin A1C 5.5 %
--- NOTE | 2017-04-09 11:12 | Cardiology Consult Note ---
Date of Encounter: 04/09/17 Time of Encounter: 11:05 Assessment and Plan (1) Chest pain Current Visit: Yes Status: Acute C/o mid epigastric pain radiating to his chest. Pain mildly improved with NTG. Troponin negative x2. EKG initially showed SR with isolated ST elevation in lead V2, not diagnostic of CO. Patient started on heparin gtt. Serial EKG showed SR with no ST elevation. Agree with discontinuing heparin gtt. LHC 3-4 years ago at [facility] showed no significant CAD. Will order records. Cardiac risk factors include HLD and newly diagnosed HTN. TTE pending. Discussed with Dr. Velázquez, recommend stress test for further evaluation. Stress test in AM. Continue asa, statin, and bb for now as already started. Qualifiers: Chest pain type: unspecified Qualified Code(s): R07.9 - Chest pain, unspecified Discussion w patient/family: The assessment and plan as outlined above was discussed with the patient and/or family members who expressed understanding and agreement. All questions were answered. Thank you for involving us in the care of your patient. Please call with any questions. History of Present Illness Consult date: 04/09/17 Requesting physician: Reuben Dong Consult reason: Chest pain Chief complaint: Midepigastric pain radiating to his chest. History of present illness: Mr. Kuhn is a 66 year old male with a past medical history of degenerative disc disease and HLD who presents with mid-epigastric pain radiating to his chest while sitting. His pain was associated with diaphoresis and palpitations. He took Maalox with no relief. His pain continued to increase so he presented to the ED. He states that his pain improved some with NTG given early this morning. He c/o 4-6 weeks of midepigastric pain that he experiences when he has not eaten in a while. He was scheduled for an EGD in one week. He also reports being recently seen to have elevated blood pressure and was keeping a blood pressure log for his primary care provider. He reports having similar event 3- 4 years ago at [facility]. He underwent cardiac work-up including LHC at that time that showed normal coronary arteries. Last night he was initially started on heparin gtt due to concern for unstable angina. After having second normal troponin heparin gtt was discontinued. Past Med Surg Social Fam HX - Past Medical History Medical history: arthritis, kidney stones, migraine Psychiatric history: anxiety, depression - Past Surgical History Surgical History: other - Social History Smoking Status: Never smoker Smokeless Tobacco Status: No Alcohol use: none Drug use: none Medications and Allergies Clorazepate [Tranxene] 7.5 mg PO TID 11/05/16 [History] Gabapentin [Neurontin] 400 mg PO TID 11/05/16 [History] 3 Allergy/AdvReac Type Severity Reaction Status Date / Time No Known Allergies Allergy Verified 11/05/16 16:09 All Systems Review: A 10-system review of systems was performed and is negative for pertinent findings except as documented above in the HPI. Physical Examination Vital Signs, Last 4 Hours Pulse Resp BP Pulse Ox 04/09/17 10:43 64 18 125/72 98 04/09/17 08:30 72 18 118/61 97 04/09/17 07:22 73 18 126/74 97 General: Conversant, No Apparent Distress HEENT: Atraumatic, Normocephaly, Mucus Membranes Moist Neck: No JVD, Normal carotid pulses Cardiac: Reg Rate and Rhythm, Normal S1 and S2, No Murmur Lungs: Normal Breath Sounds, No Wheeze, Rales, Rhonchi Neuro: Alert and responsive, No focal deficits noted Abdomen: Soft, Non-Tender Skin: No rashes noted on visualized skin Musculoskeletal: No Chest Wall Tenderness Extremities: No Clubbing, No Cyanosis, No Edema, Normal Pulses Results 04/09/17 04:04 04/09/17 04:04 Lab Results 04/09/17 08:58 Troponin I < 0.03 - Imaging and Cardiology Chest Xray: report reviewed - EKG Interpretation EKG results cardiology: personally reviewed Consult Discharge Plan - Plan Referrals: Amita Dior, OPERATING ROOM SCHEDULER [Primary Care Provider] -
[2017-04-10 05:31] LABS: Basophils # 0.1 K/mcL (0.0-0.2); Basophils % 0.7 %; Eosinophils # 0.3 K/mcL (0.0-0.6); Eosinophils % 4.2 %; Hematocrit 43.2 % (37.5-50.1); Hemoglobin 14.2 g/dL (12.9-16.9); Immature Granulocytes % 0.3 % (0-4); Lymphocytes # 2.6 K/mcL (0.6-4.6); Lymphocytes % 35.9 %; Mean Corpuscular HGB Conc 32.9 g/dL (31.6-35.5); Mean Corpuscular Hemoglobin 30.9 pg (28.0-33.3); Mean Corpuscular Volume 94.1 fL (83.0-100.0); Monocytes # 0.6 K/mcL (0.0-1.3); Monocytes % 8.2 %; Neutrophils # 3.7 K/mcL (1.6-8.9); Platelet Count 257 K/mcL (140-400); Red Blood Count 4.59 M/mcL (4.19-5.50); Red Cell Distribution Width 12.4 % (11.5-14.5); Segmented Neutrophils % 50.7 %
[2017-04-10 05:59] LABS: BUN/Creatinine Ratio 16 (6-26); Blood Urea Nitrogen 14 mg/dL (8-23); Calcium 8.8 mg/dL (8.6-10.3); Carbon Dioxide 23 mEq/L (23-29); Chloride 112 mEq/L (98-107); Glucose 98 mg/dL (70-105); Osmolality,Calculated 292 (280-300); Sodium 141 mEq/L (136-145); eGFR For African Americans > 60 (> 60); eGFR For Non-African Americans > 60 (> 60)
[2017-04-10] MEDS ORDERED: Regadenoson 0.4 MG/5 ML SYRINGE IVP ONE (06:15)
[2017-04-10] MEDS ORDERED: Aspirin Enteric Coated 81 MG Tablet PO SCH (09:00)
[2017-04-10] MEDS: Gabapentin 400 MG CAPSULE PO SCH ×3 (09:34→21:25)
--- NOTE | 2017-04-10 11:36 | Event Note ---
Date of Encounter: 04/10/17 Time of Encounter: 11:34 - Cardiology Event Note Stress test resulted--Gated EF 65%. There was a large sized, moderate intensity , partially reversible defect throughout the inferior segments. This possibly represents a prior infarct with tootie-infarct ischemia. Small sized, moderate intensity, reversible apical septim and apex defect suggestive of ischemia. Recommend LHC to further evaluate. R/B/A discussed. Pt agrees to proceed. LHC today.
--- NOTE | 2017-04-10 12:16 | Pre-Sedation Evaluation ---
Pre-sedation evaluation - Pre-sedation checklist Date of procedure: 04/10/17 Procedure: [facility] Recent Vitals: Last Vital Signs Temp 97.8 F 04/10/17 12:07 Pulse 69 04/10/17 12:07 Resp 14 04/10/17 12:07 BP 170/80 04/10/17 12:07 Pulse Ox 98 04/10/17 12:07 H&P (including ROS) documented in medical record: Yes Previous reaction to sedatives/anesthetics: No Dietary Status: NPO after Midnight Airway Assessment: Patient can open mouth completely, TMJ function normal ASA Classification *see protocol: CLASS II-Mild systemic disease Plan of Care: Pt appropriate candidate for procedure/moderate/conscious sedation , Risks/benefits of procedure/sedation discussed w/ patient/family
--- NOTE | 2017-04-10 16:10 | Internal Med Progress Note ---
Date of Encounter: 04/10/17 Time of Encounter: 08:45 - Assessment and plan (1) Chest pain Current Visit: Yes Status: Acute Assessment and plan: Presented with intermittent chest pain, worsening, concern for ACS. EKG showed no acute ischemic changes. Serial troponins remained negative. Has been previously started on anticoagulation with IV heparin drip the emergency room, currently discontinued. Continue aspirin, beta rolanda, statin, telemetry monitoring. Cardiology recommendations appreciated; nuclear stress test is abnormal with 2 defects-large sized, moderate intensity, partially reversible defect in inferior segments, possible previous infarct with tootie-infarct ischemia; small sized, moderate intensity, reversible apical septum and apex defect, suggestive of ischemia. Plan for left heart catheterization today. Qualifiers: Chest pain type: unspecified Qualified Code(s): R07.9 - Chest pain, unspecified (2) Essential hypertension Current Visit: Yes Status: Chronic Assessment and plan: Patient has been diagnosed with hypertension probably during this admission. Beta rolanda has not been started, will start low-dose metoprolol. (3) Hyperlipidemia Current Visit: Yes Status: Chronic Assessment and plan: Continue statin. Lipid panel noted to be within normal limits, slightly low HDL cholesterol at 35. Qualifiers: Hyperlipidemia type: unspecified Qualified Code(s): E78.5 - Hyperlipidemia , unspecified (4) Ureteral stone with hydronephrosis Current Visit: Yes Status: Chronic Assessment and plan: Follows with urology as outpatient. (5) Chronic back pain Current Visit: Yes Status: Chronic Qualifiers: Back pain location: back pain in unspecified location Back pain laterality : unspecified Qualified Code(s): M54.9 - Dorsalgia, unspecified; G89.29 - Other chronic pain; G89.29 - Other chronic pain (6) GERD (gastroesophageal reflux disease) Current Visit: Yes Status: Chronic Assessment and plan: Has been scheduled for EGD and colonoscopy as an outpatient next month, at [facility]. Qualifiers: Esophagitis presence: without esophagitis Qualified Code(s): K21.9 - Gastro -esophageal reflux disease without esophagitis - Subjective Interval history: Continues to report intermittent epigastric pain, radiating into his upper chest and bilateral arms. Patient is very concerned about possible underlying coronary artery disease, reports ongoing decline in functional status, weight loss. No chest pain, fever, chills, cough, dyspnea at this time. - Constitutional Vitals: Temp Pulse Resp BP Pulse Ox 97.8 F 69 14 170/80 98 04/10/17 12:07 04/10/17 12:07 04/10/17 12:07 04/10/17 12:07 04/10/17 12:07 General appearance: Present: A&O X 3, answers questions appropriately - Respiratory Respiratory exam: Present: CTAB. Absent: accessory muscle use, rales, rhonchi, wheezes - Cardiovascular Cardiovascular exam: Present: RRR, +S1, +S2. Absent: diastolic murmur, gallop, rubs, systolic murmur - GI/Abdominal GI/Abdominal exam: Present: normal bowel sounds, soft, no peritoneal signs. Absent: distended, tenderness - Extremities Exam Extremities exam: Present: full ROM, warm, radial pulses palpable and symmetrical. Absent: calf tenderness, cyanotic, pedal edema - Neurological Exam Neurological exam: Present: CN II-XII intact, oriented X3, no focal deficits. Absent: pronater drift, facial droop, speech deficit Internal Medicine: Result - Labs CBC & Chem 7: 04/10/17 04:58 04/10/17 04:58 Labs: Short CBC 04/10/17 Range/Units 04:58 WBC 7.2 (4.3-11.1) K/mcL Hgb 14.2 (12.9-16.9) g/dL Hct 43.2 (37.5-50.1) % Plt Count 257 (140-400) K/mcL Neutrophils # 3.7 (1.6-8.9) K/mcL BMP 04/10/17 04:58 Sodium 141 Potassium 4.0 Chloride 112 H Carbon Dioxide 23 BUN 14 Creatinine 0.90 Glucose 98 Calcium 8.8 Cardiac Enzymes 04/09/17 Range/Units 15:56 Troponin I < 0.03 (< 0.04) ng/mL - ABG Interpretation ABG results: PT/INR, D-dimer PT 10.8 Seconds (9.4-12.1) 04/09/17 04:04 Consult Discharge Plan - Plan Referrals: Amita Dior, PACKAGING MANAGER [Primary Care Provider] - 04/17/17 10:00 am (Please follow up as schedule...)
[2017-04-10] MEDS ORDERED: *HR* Heparin 10,000 UNIT/10 ML VIAL ONE (17:12)
[2017-04-10] MEDS ORDERED: Verapamil 5 MG/2 ML VIAL ONE (17:12)
[2017-04-10] MEDS ORDERED: 0.9 % Sodium Chloride 1,000 ML ONE ×2 (17:12→17:21)
[2017-04-10] MEDS ORDERED: Heparin 1,000 UNITS/500 mL 500 ML ONE (17:12)
[2017-04-10] MEDS ORDERED: Nitroglycerin 1,000 MCG/10 ML VIAL IV ONE (17:13)
[2017-04-10] MEDS ORDERED: *HR* FentaNYL (PF) 100 MCG/2 ML VIAL ONE (17:21)
[2017-04-10] MEDS ORDERED: *HR* Midazolam HCl 2 MG/2 ML VIAL ONE ×2 (17:21→17:34)
--- NOTE | 2017-04-10 17:47 | Event Note ---
Date of Encounter: 04/10/17 Time of Encounter: 17:00 - Cardiology Event Note Mild CAD, normal EF. From cath standpoint, can be discharged this evening.
--- NOTE | 2017-04-10 17:58 | Invasive Diagnostic Lab Proc ---
Name: iHma Kuhn Date of Study: 04/10/2017 Date: 1950 Ht: 68.9in Medical Record#: [id number] Age: 66 Wt: 156.75lb Gender: Male BSA: 1.86 Order #: [id number] BMI: 23.22 Physicians Procedure Physician: Rex Landis MD, [facility] Referring MD: Referring MD: Staff Name Position Time In Emerald Guillaume DANII Monitor 05:29 PM Felicia Wolf RT Scrub 05:29 PM Janene Fonseca RN [employer] L[employer] 05:30 PM Indications Indication Abnormal Test - Stress Procedures Performed Procedure L HRT ARTERY/VENTRICLE ANGIO Pre-Procedure Checklist Informed consent is complete signed and on chart. H&P is on chart. ID band is on and ID verified with patient. Patient NPO for procedure The procedure was described for the patient and questions were answered. Blood Pressure: 170/80 ECG is on chart. Rhythm: NSR Plan of Care Patient will tolerate the procedure without complications. Adequate level of comfort will be maintained. Hemodynamics will remain stable Patient will recover from procedure without complications. Respiratory function will be maintained. Cardiac rhythm will remain stable. Patient temperature will be maintained. Patient and/or family have verbalized understanding of the procedure. Patient Education Chief Complaint/Reason for Test: Cardiac Cath Developmental Category: Geriatric (65+ years) Developmentally Appropriate for Age: Yes Learning Barriers: None Education Needs: Procedure Education Method: Verbal Information Taught: Cardiac Cath Educational Evaluation: Able to repeat information Intravenous Access Time IV Size Location DC'd Fluid/Drip Rate Units RN 05:14 PM 20g 1 1/4" Patent On Arrival Rt Hand 0.9NaCl ml/hr Janene Fonseca RN 20g 1 1/4" Patent On Arrival Rt Arm Janene Fonseca RN Allergies No Known Allergies Vital Signs Time BP (mmHg) HR (bpm) O2 Sat. RR (bpm) LOC 05:14 PM 170 / 80 69 98 % 14 5 = Fully awake and oriented or at pre-proc level 05:31 PM / % 5 = Fully awake and oriented or at pre-proc level 05:23 PM 146 / 91 79 97 % 05:28 PM 148 / 92 78 99 % 16 05:33 PM 137 / 87 105 99 % 17 05:38 PM 134 / 85 109 98 % 28 05:43 PM 128 / 91 97 98 % 23 05:31 PM / % 5 = Fully awake and oriented or at pre-proc level Procedural Medications Time Medication Dose Units Method Given By 05:30 PM Oxygen 2 L/min nasal cannula Janene Fonseca RN 05:30 PM Versed 2 mg Intravenous Janene Fonseca RN 05:31 PM Fentanyl 50 mcg Intravenous Janene Fonseca RN 05:31 PM Lidocaine 2% 0.5 ml Subcutaneous Rex Landis MD, FAC 05:33 PM Heparin 4000 units Nitroglycerin 200 mcg Verapamil 2.5 mg Intraarterial Rex Landis MD, FACC 05:35 PM Versed 1 mg Intravenous Janene Fonseca RN 05:36 PM Fentanyl 25 mcg Intravenous Janene Fonseca RN ASA Classification: CLASS II- Mild systemic disease (i.e. well-controlled diabetes, hypertension, asthma, cigarette smoking) Adele Score Preprocedure Postprocedure Activity 2- Moves 4 extremities sustained head lift Activity Circulation 2- SBP +/= 20 points of pre-anesthetic level Circulation Consciousness 2- Awake and alert oriented x 3 Consciousness O2 Saturation 2- Able to maintain O2 satruation of 92% on room air O2 Saturation Respiratory 2- Able to deep breathe and cough well Respiratory Total Score 10 Total Score Contrast Agent: Isovue Diagnostic Contrast: 48 ml Total Contrast: 48 ml Fluoro Dose: 81 mGy Procedure Log Time Note Enter By 05:11 PM CathStat 05:23 PM Vitals capture started with the following parameters, Patient=Adult, Interval=5 min, Initial Eporzdxf=799 mmHg, Deflation Rate=5 mmHg, Cuff placed on Right Arm 05:23 PM HR=79 bpm, ZPSJ=836/91 mmhg, SpO2=97.0 %, Comment=NSR 05:28 PM HR=78 bpm, YKWP=415/92 mmhg, SpO2=99.0 %, Resp=16 B/min, Comment=NSR 05:29 PM Recorded ECG: HR=78 Condition=Condition 1 05:29 PM 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 well-controlled diabetes, hypertension, asthma, cigarette smoking) [facility] 05:29 PM Meet and greet completed [facility] :29 PM Sign in performed according to hospital policy. [facility] PM Procedure start 17: [facility] PM Emerald Guillaume RN Position: Monitor Time in: : [facility] : PM Felicia Wolf RT Position: Scrub Time in: 17: [facility] 05:30 PM Janene Fonseca RN Position: [employer] L[employer] Time in: 17: [facility] 05:30 PM Patient charges- Angio tray pack, Navilyst 3mm J, Pulse Oximetry and ACIST tubing and transducer [facility] 05: PM Case Delayed No [facility] : PM Hair removed from procedure site in procedure lab using clippers. Right wrist and Right groin prepped with Chloraprep by Emerald Guillaume RN, safety strap applied then patient was draped. Skin intact. [facility] PM Time: 17:30 Oxygen on at 2 L/min per nasal cannula by Janene Fonseca RN [facility] PM Time: 17:30 Versed 2 mg Intravenous Given by Janene Fonseca RN [facility] PM Time: 17:31 Fentanyl 50 mcg Intravenous Given by Janene Fonseca RN [facility] PM Time: 17:31 Patient comfortable and pain free: Yes [facility] PM Time: 17:31LOC: 5 = Fully awake and oriented or at pre-proc level [facility] : PM Clinical Presentation: Unstable angina [facility] PM Time out performed according to hospital policy [facility] PM Time: 17:31 0.5 ml Lidocaine 2% to right radial Subcutaneous Given by Rex Landis MD, FACC [facility] PM Pressure channel 1 zeroed. 05:32 PM Access obtained by percutaneous puncture. 6Fr 10cm Terumo Glidesheath sheath placed in right Radial artery. [id number] [facility] PM Time: 17:33 Patient given 4,000 units Heparin, 200 mcg Nitroglycerin, and 2.5 mg Verapamil Intraarterial by Rex Landis MD, FACC. This is given to reduce risk of vessel spasm and thrombosis. [facility] PM AJ=818 bpm, HUYV=454/87 mmhg, SpO2=99.0 %, Resp=17 B/min, Comment=NSR 05:34 PM 5Fr TIG catheter inserted over the wire [facility] lparsley 05:34 PM 0.035 260cm Navilyst 3mmJ wire [id number] lparsley 05:35 PM Pressure channel 1 zeroed. 05:35 PM RCA angiography performed in multiple views. lparsley 05:35 PM Time: 17:35 Versed 1 mg Intravenous Given by Janene Fonseca RN lparsley 05:36 PM Time: 17:36 Fentanyl 25 mcg Intravenous Given by Janene Fonseca RN lparsley 05:36 PM Recorded Pressure: Ao, MQ=709, Condition=Condition 1 (Aorta) Ao 130/104/118 05:37 PM Lesion found in Mid RCA. Pre Stenosis: 20 Pre MICAH Flow: 3: Complete and Brisk Flow/Perfusion lparsley 05:37 PM LCA angiography performed in multiple views. lparsley 05:38 PM Recorded Pressure: Ao, NQ=761, Condition=Condition 1 (Aorta) Ao 126/96/111 05:38 PM Catheter removed lparsley 05:38 PM Lesion found in Proximal LAD. Pre Stenosis: 30 Pre MICAH Flow: 3: Complete and Brisk Flow/Perfusion lparsley 05:38 PM ZF=452 bpm, SYTE=513/85 mmhg, SpO2=98.0 %, Resp=28 B/min, Comment=NSR 05:38 PM Lesion found in Mid Circumflex. Pre Stenosis: 40 Pre MICAH Flow: 3: Complete and Brisk Flow/Perfusion lparsley 05:39 PM 5Fr Pigtail catheter inserted over the wire [facility] lparsley 05:39 PM Catheter selectively placed in left ventricle lparsley 05:39 PM Recorded Pressure: LV, NW=827, Condition=Condition 1 (Left Ventricle) LV 139/1/12 05:39 PM Bolus angiogram of left Ventricle complete: 10 ml/sec for a total of 20 mls lparsley 05:39 PM Recorded Pressure: LV, Ao, GA=249, Condition=Condition 1 (Left Ventricle) LV 133/36/30, (Aorta) Ao 132/82/101 05:40 PM Catheter removed lparsley 05:40 PM Coronary Dominance: right lparsley 05:41 PM Procedure completed at 17:41 lparsley 05:41 PM Did you address MICAH flow and Dominance? Yes lparsley 05:42 PM Sign out completed: Radiation Dose 81.47 mGy Fluoro Time: 1.4 Isovue 370 - 200ml contrast 48 ml given by Rex Landis MD, FACC. Complications: NoneCardiac Rehab Consult needed: NoConfirmed administered medications: Yes lparsley 05:42 PM Isovue 370 - 200ml,1 Bottle(s) used. lparsley 05:42 PM Arterial sheath pulled, Vasc Band closure device used and was Successful S/N. lparsley 05:42 PM 12 ml air in Vasc Band. lparsley 05:43 PM Estimated Blood Loss: minimal lparsley 05:43 PM Post ECG NSR lparsley 05:43 PM Post Blood Pressure 134/85 lparsley 05:43 PM 17:43 Post Pulses Rt Radial 2+ lparsley 05:43 PM HR=97 bpm, UECV=730/91 mmhg, SpO2=98.0 %, Resp=23 B/min, Comment=NSR 05:43 PM Information taught Cardiac Cath and Vasc Band lparsley 05:44 PM Education needs Procedure, Plan of Care, and Discharge Instructions lparsley 05:44 PM Learning barriers :None lparsley 05:44 PM Education Methods Verbal lparsley 05:44 PM Education evaluation Able to repeat information lparsley 05:44 PM Site status No bleeding/hematoma - Rt Wrist as reported by Felicia Wolf RT at 17:44 lparsley 05:46 PM Report given to Yajaira FOY Pt taken to 2A Room #11. 17:44 lparsley 05:46 PM Plavix, Effient or Brilinta given No lparsley 05:46 PM Delay to floor No lparsley 05:46 PM Patient out of room: 17:46 lparsley 05:46 PM Time: 17:31LOC: 5 = Fully awake and oriented or at pre-proc level lparsley 05:46 PM Time: 17:31 Patient comfortable and pain free: Yes lparsley 05:46 PM Family placed in consult room. lparsley 05:46 PM Complications: None lparsley 05:46 PM Fluoro Time: 1.4 lparsley 05:46 PM Isovue 370 - 200ml contrast 48 ml given by Rex Landis MD, FACC. lparsley 05:47 PM Radiation Dose 81.47 mGy lpajuliet Complications Complication None Hemodynamics Pressures Site Systolic/A Wave Diastolic/V Wave Mean AO 130 104 118 AO 126 96 111 LV 139 1 12 LV 133 36 30 AO 132 82 101 Post Procedure Information Blood Pressure: 134/85 mmHg Rhythm: NSR Post procedural instructions were given Closure Device Time Device Success/Fail 04/10/2017 5:42:00 PM Mechanical Compression Successful Site Checks Time Location Status Staff Sheath In? Note 05:44 PM Rt Wrist No bleeding/hematoma Felicia Wolf RT Pulses Time Site Pre-Procedure Post-Procedure Note 04/10/2017 5:14:00 PM Bilateral DP & PT 2+ 04/10/2017 5:14:00 PM Bilateral radial 2+ 5:43:00 PM Rt Radial 2+ Updated by Emerald Guillaume RN on 04/10/2017 5:50:26 PM electronically signed on 04/10/2017 5:50:51 PM with status of Final
--- NOTE | 2017-04-10 18:13 | Electrocardiograph Report ---
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
--- NOTE | 2017-04-10 18:13 | Electrocardiograph Report ---
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
[2017-04-10 18:48] VITALS: BP 114/74
[2017-04-10] MEDS ORDERED: Acetaminophen/Butalbital/CaffeineTABLET PO PRN (19:07)
--- NOTE | 2017-04-10 20:22 | Discharge Summary ---
Date of Encounter: 04/10/17 Time of Encounter: 20:20 - Discharge Diagnosis (1) Chest pain Priority: Primary Status: Acute Qualifiers: Chest pain type: unspecified Qualified Code(s): R07.9 - Chest pain, unspecified (2) Essential hypertension Priority: Primary Status: Chronic (3) Hyperlipidemia Priority: Secondary Status: Chronic Qualifiers: Hyperlipidemia type: unspecified Qualified Code(s): E78.5 - Hyperlipidemia , unspecified (4) Ureteral stone with hydronephrosis Priority: Secondary Status: Chronic (5) Chronic back pain Priority: Secondary Status: Chronic Qualifiers: Back pain location: back pain in unspecified location Back pain laterality : unspecified Qualified Code(s): M54.9 - Dorsalgia, unspecified; G89.29 - Other chronic pain; G89.29 - Other chronic pain (6) GERD (gastroesophageal reflux disease) Priority: Secondary Status: Chronic Qualifiers: Esophagitis presence: without esophagitis Qualified Code(s): K21.9 - Gastro -esophageal reflux disease without esophagitis - Discharge Medications Prescriptions: Metoprolol [Lopressor] 12.5 mg PO BID #30 tablet Home Medications: Clorazepate [Tranxene] 7.5 mg PO TID 11/05/16 [History] Gabapentin [Neurontin] 400 mg PO TID 11/05/16 [History] Metoprolol [Lopressor] 12.5 mg PO BID #30 tablet 04/10/17 [Rx] Allergies/Adverse Reactions: 3 Allergy/AdvReac Type Severity Reaction Status Date / Time No Known Allergies Allergy Verified 11/05/16 16:09 Procedures/tests Complete & Pending: Procedures Performed prior 72 hours Category Date Time Status CL Cardiac Catheterization [CL] Routine [place] Consultant 04/10/17 11:37 Ordered NM jeannette perf SPECT multi [NM] Routine Exams 04/10/17 07:00 Taken EV echocardiogram Routine Y 04/09/17 08:38 Completed SP pharm nuclear stress Routine Y 04/10/17 07:30 Completed Date of admission: 04/09/17 06:04 Primary care physician: Amita Dior Consults: 04/09/17 08:38 Consult to Cardiology [CONS] Routine Comment: Consulting Provider: Cardiology Gretchen Reason for Consult: Unstable angina Call Completed: Yes Discharging clinician: Raven Linn Anticipated date of discharge: 04/10/17 - Patient Status Disposition: Home, Self-Care Condition: Good Functional capacity at discharge: independent ambulation Overall status at discharge: patient is progressing back to baseline - Discharge Instructions Instructions: Angina (DC), Left Heart Catheterization (DC), Gastroesophageal Reflux Disease (DC) Follow Up With: Amita Dior CNP [Primary Care Provider] - 04/17/17 10:00 am (Please follow up as schedule...) - Diet and Activity Activity: resume usual activities as tolerated Diet: low fat, low cholesterol, low salt diet Hospital course: Mr. Kuhn is a 66 year old male who was admitted with chest pain. Initial EKG , chest Ray and serial Troponins were normal. Telemetry monitoring remained uneventful. Cardiology was consulted and patient was initially started on anticoagulation with IV Heparin drip (which was later held due to normal Troponins) along with ASA and statin. Echocardiogram was done and showed EF 50% , mild LV diastolic dysfunction. He eventually underwent LHC, which showed mild CAD, medical therapy was recommended. HE is medically stable for discharge and is being discharged on ASA, beta rolanda and statin, with outpatient f/up. - Time Spent with Patient Total time spent providing and/or coordinating discharge services: Greater than 30 minutes (40 min) - Constitutional Vitals: Temp Pulse Resp BP Pulse Ox 97.9 F 82 14 114/74 94 04/10/17 18:47 04/10/17 18:47 04/10/17 18:47 04/10/17 18:47 04/10/17 18:47 General appearance: Present: A&O X 3, answers questions appropriately - Cardiovascular Cardiovascular exam: Present: RRR, +S1, +S2. Absent: diastolic murmur, gallop, rubs, systolic murmur
== END 2017-04-10 21:37 | disposition home or self-care (01) ==
LOC: EMEROO 03:05 → 2SOUTHHOLD 03:05 → SUATTDRO 06:04 → 2ANU 11:31
PROVIDERS: ADMIT Internal Medicine; ATTEND Internal Medicine

== ENCOUNTER 2018-12-14 15:50 | Inpatient (IN) ==
--- NOTE | 2018-12-14 16:12 | Emergency Department Note ---
Disposition Clinical Impression: Abnormal CT scan UTI (urinary tract infection) Qualifiers: Urinary tract infection type: acute cystitis Hematuria presence: with hematuria Qualified Code(s): N30.01 - Acute cystitis with hematuria Sepsis Qualifiers: Sepsis type: sepsis due to unspecified organism Sepsis acute organ dysfunction status: unspecified Qualified Code(s): A41.9 - Sepsis, unspecified organism Disposition: Admitted As Inpatient Condition: Good Referrals: Amita Dior, PLANT SENIOR MANAGER [Primary Care Provider] - Forms: ED Satisfaction Letter, Work/School Release Time of Disposition: 18:03 General Adult HPI - General Chief complaint: ED General Medical Stated complaint: Bodyaches, light headed, headache Time Seen by Provider: 12/14/18 15:54 Source: patient Limitations: no limitations - History of Present Illness Pain Scale: 7 - Related Data Home Medications Medication Instructions Recorded Confirmed Clorazepate [Tranxene] 7.5 mg PO TID 11/05/16 06/11/17 Gabapentin [Neurontin] 400 mg PO TID 11/05/16 06/11/17 Aspirin [Lo-Dose Aspirin EC] 81 mg PO DAILY 06/11/17 06/11/17 Cholecalciferol (D-3) [Vitamin D] 1,000 unit PO DAILY 06/11/17 06/11/17 Metoprolol [Lopressor] 12.5 mg PO DAILY 06/11/17 06/11/17 Previous Rx's Medication Instructions Recorded HYDROcodone/Acet 5/325 mg [[place] 1 tab PO Q4H PRN 5 Days #15 tab 06/11/17 5-325 mg] Meclizine [Antivert] 25 mg PO TID PRN #3 tablet 09/27/17 Allergies Allergy/AdvReac Type Severity Reaction Status Date / Time No Known Allergies Allergy Verified 09/27/17 13:51 Past Medical History - Past Medical History Medical history: Reports: arthritis, hypertension, kidney stones, migraine Surgical history: Reports: non-contributory, other Psychiatric history: Reports: anxiety, depression - Social History Smoking Status: Never smoker Smokeless Tobacco Status: No Alcohol use: Reports: none Drug use: Reports: none Physical Exam - General Limitations: no limitations General appearance: alert Course Vital Signs Temperature 99.5 F 12/14/18 15:53 Pulse Rate 115 12/14/18 15:53 Respiratory Rate 20 12/14/18 15:53 Blood Pressure 113/62 12/14/18 15:53 O2 Sat by Pulse Oximetry 98 12/14/18 15:53 Temperature 99.5 F 12/14/18 16:04 Pulse Rate 115 12/14/18 16:04 Respiratory Rate 20 12/14/18 16:04 Blood Pressure 113/62 12/14/18 16:04 O2 Sat by Pulse Oximetry 98 12/14/18 16:04 Oxygen Delivery Oxygen Delivery Room Air Medical Decision Making - Lab Data Result diagrams: 12/14/18 16:23 12/14/18 16:23 Lab Results 12/14/18 12/14/18 12/14/18 Range/Units 16:23 16:23 16:24 WBC 16.2 H (4.3-11.1) K/mcL RBC 4.35 (4.19-5.50) M/mcL Hgb 13.9 (12.9-16.9) g/dL Hct 42.3 (37.5-50.1) % MCV 97.2 (83.0-100.0) fL MCH 32.0 (28.0-33.3) pg MCHC 32.9 (31.6-35.5) g/dL RDW 12.2 (11.5-14.5) % Plt Count 224 (140-400) K/mcL MPV 10.8 (9.4-12.4) fL Immature Gran % 0.7 (0-4) % Seg Neutrophils % 82.3 % Lymphocytes % 9.9 % Monocytes % 6.7 % Eosinophils % 0.2 % Basophils % 0.2 % Neutrophils # 13.3 H (1.6-8.9) K/mcL Lymphocytes # 1.6 (0.6-4.6) K/mcL Monocytes # 1.1 (0.0-1.3) K/mcL Eosinophils # 0.0 (0.0-0.6) K/mcL Basophils # 0.0 (0.0-0.2) K/mcL Sodium 135 L (136-145) mEq/L Potassium 3.8 (3.5-5.1) mEq/L Chloride 106 (98-107) mEq/L Carbon Dioxide 27 (23-29) mEq/L BUN 12 (8-23) mg/dL Creatinine 0.99 (0.70-1.30) mg/dL Est GFR ( Amer) > 60 (> 60) Est GFR (Non-Af Amer) > 60 (> 60) BUN/Creatinine Ratio 12 (6-26) Glucose 139 H (70-105) mg/dL Calculated Osmolality 282 (280-300) Lactic Acid (0.5-2.2) mmol/L Calcium 9.3 (8.6-10.3) mg/dL Total Bilirubin 2.0 H (0.3-1.0) mg/dL Direct Bilirubin 0.3 H (0.0-0.2) mg/dL Indirect Bilirubin 1.7 H (0.0-1.2) mg/dL AST 13 (13-39) Units/L ALT 13 (7-52) Units/L Alkaline Phosphatase 83 (34-104) Units/L Troponin I < 0.03 (< 0.04) ng/mL Serum Total Protein 7.5 (6.4-8.9) g/dL Albumin 4.2 (3.5-5.7) g/dL Globulin 3.3 (2.4-3.5) g/dL Albumin/Globulin Ratio 1.3 (1.1-2.2) Lipase 6 L (11-82) Units/L Urine Color Dark Yellow (Yellow) Urine Clarity Clear (Clear) Urine pH 7.0 (5.0-8.0) pH Units Ur Specific [place] 1.022 (1.010-1.025) Urine Protein 30 H (Neg-Trace) mg/dL Urine Glucose (UA) Normal (Normal) mg/dL Urine Ketones Trace H (Negative) mg/dL Urine Blood Trace H (Negative) Urine Nitrite Negative (Negative) Urine Bilirubin Negative (Negative) Urine Urobilinogen Normal (Normal) mg/dL Ur Leukocyte Esterase Moderate H (Negative) Urine Microscopic RBC 0-3 (0-3) per hpf Urine Microscopic WBC 30-50 H (0-3) per hpf Urine Bacteria Few (None-Few) per hpf Urine Mucus Few (Few) Urine Yeast Few H (None Seen) per hpf Ur Culture Indicated? YES A (NO) 12/14/18 Range/Units 17:15 WBC (4.3-11.1) K/mcL RBC (4.19-5.50) M/mcL Hgb (12.9-16.9) g/dL Hct (37.5-50.1) % MCV (83.0-100.0) fL MCH (28.0-33.3) pg MCHC (31.6-35.5) g/dL RDW (11.5-14.5) % Plt Count (140-400) K/mcL MPV (9.4-12.4) fL Immature Gran % (0-4) % Seg Neutrophils % % Lymphocytes % % Monocytes % % Eosinophils % % Basophils % % Neutrophils # (1.6-8.9) K/mcL Lymphocytes # (0.6-4.6) K/mcL Monocytes # (0.0-1.3) K/mcL Eosinophils # (0.0-0.6) K/mcL Basophils # (0.0-0.2) K/mcL Sodium (136-145) mEq/L Potassium (3.5-5.1) mEq/L Chloride (98-107) mEq/L Carbon Dioxide (23-29) mEq/L BUN (8-23) mg/dL Creatinine (0.70-1.30) mg/dL Est GFR ( Amer) (> 60) Est GFR (Non-Af Amer) (> 60) BUN/Creatinine Ratio (6-26) Glucose (70-105) mg/dL Calculated Osmolality (280-300) Lactic Acid 1.0 (0.5-2.2) mmol/L Calcium (8.6-10.3) mg/dL Total Bilirubin (0.3-1.0) mg/dL Direct Bilirubin (0.0-0.2) mg/dL Indirect Bilirubin (0.0-1.2) mg/dL AST (13-39) Units/L ALT (7-52) Units/L Alkaline Phosphatase (34-104) Units/L Troponin I (< 0.04) ng/mL Serum Total Protein (6.4-8.9) g/dL Albumin (3.5-5.7) g/dL Globulin (2.4-3.5) g/dL Albumin/Globulin Ratio (1.1-2.2) Lipase (11-82) Units/L Urine Color (Yellow) Urine Clarity (Clear) Urine pH (5.0-8.0) pH Units Ur Specific [place] (1.010-1.025) Urine Protein (Neg-Trace) mg/dL Urine Glucose (UA) (Normal) mg/dL Urine Ketones (Negative) mg/dL Urine Blood (Negative) Urine Nitrite (Negative) Urine Bilirubin (Negative) Urine Urobilinogen (Normal) mg/dL Ur Leukocyte Esterase (Negative) Urine Microscopic RBC (0-3) per hpf Urine Microscopic WBC (0-3) per hpf Urine Bacteria (None-Few) per hpf Urine Mucus (Few) Urine Yeast (None Seen) per hpf Ur Culture Indicated? (NO) Attestation Statement - Attestation Attestation: Rhina Salvador D.O., examined this patient and my medical decision-making was reviewed with the Resident Physician. I agree with the documented findings, disposition and treatment plan as described except to the extent set forth below. This is a 68-year-old male with a past medical history of previous ureterolithiasis requiring intraoperative retrieval who presents with multiple complaints. The patient states he started developing a headache approximately 2 days ago. States he has a history of migraines but this seems different. He has had a persistent headache ever since. He had no inciting trauma. He also reports ever since then he has had pain. His pain is post void. States that it feels like it starts in his bladder and goes up into his chest. He denies any actual dysuria or hematuria. He denies any vomiting or diarrhea. He has had no recent illnesses. He tells me that his heart rate was elevated in the 120s last night when he checked it before he went to bed. States that is not normal for him. No other complaints. General: Alert, no acute distress HENT: Normocephalic, Atraumatic Neck: No JVD Cardiovascular: Tachycardic, regular rhythm. No appreciable murmurs Respiratory: Lungs CTAB. No wheezing/rhonchi Abdominal: Soft, patient has bilateral CVA tenderness and suprapubic tenderness. No peritoneal findings Extremities: No peripheral edema Neuro: Alert, Mentating appropriately, No focal deficits Skin: Warm, Dry Plan: EKG, CT head and abdomen, labs and UA. Will give 1L NS and fentanyl for pain. Labs reviewed. He has a leukocytosis of 16. Given his WBC and HR he meets SIRS. Lactic acid and blood cultures ordered. UA shows mod leuk esterase, will give 1g Rocephin. Plan to admit for Sepsis/UTI. Noted to have elevated bilirubin. S/P cholecystectomy. Awaiting CT imaging Lactic acid normal. HR improved with IVF. Admitted to hospitalist service. ED Procedure Note: EKG interpretation - I agree with the resident physician's documentation and interpretation of the patient's EKG. Sinus tachycardia with rate 109. Normal axis. Normal intervals. Normal R-wave progression. No gross ST elevations or depressions. No acute ischemic findings. No significant changes from previous EKG dated 04/09/17.
[2018-12-14] MEDS ORDERED: *HR* FentaNYL (PF) 100 MCG/2 ML VIAL IVP ONE (16:21)
[2018-12-14] MEDS ORDERED: 0.9 % Sodium Chloride 1,000 ML IVC ONE ×2 (16:21→17:30)
--- NOTE | 2018-12-14 16:25 | Emergency Department Note ---
Disposition Clinical Impression: Abnormal CT scan UTI (urinary tract infection) Qualifiers: Urinary tract infection type: acute cystitis Hematuria presence: with hematuria Qualified Code(s): N30.01 - Acute cystitis with hematuria Sepsis Qualifiers: Sepsis type: sepsis due to unspecified organism Sepsis acute organ dysfunction status: unspecified Qualified Code(s): A41.9 - Sepsis, unspecified organism Disposition: Admitted As Inpatient Condition: Good Referrals: Amita Dior, STITCHER FEEDER [Primary Care Provider] - Forms: ED Satisfaction Letter, Work/School Release Time of Disposition: 18:05 General Adult HPI - General Chief complaint: ED General Medical Stated complaint: Bodyaches, light headed, headache Time Seen by Provider: 12/14/18 15:54 Source: patient, family Mode of arrival: ambulatory Limitations: no limitations Nursing Notes Reviewed: Yes Vital Signs Reviewed: Yes - History of Present Illness HPI Narrative: 68-year-old male with significant past medical history of multiple renal stones requiring surgical removal, hypertension and hyperlipidemia presenting to the emergency department with multiple complaints. Patient states this morning he woke up and had a headache. He has had headaches similar to this the past. Normally do not last all day. Progressively worsening throughout the day. Patient also states that today when he urinates he has no hematuria or dysuria but after he finishes he has severe pain from his suprapubic area up into his chest through his abdomen. He states he has never had issues like this before. Does not feel like previous kidney stones. Denies any shortness of breath or f ocal neurological deficit. Pain Scale: 7 - Related Data Home Medications Medication Instructions Recorded Confirmed Clorazepate [Tranxene] 7.5 mg PO TID 11/05/16 06/11/17 Gabapentin [Neurontin] 400 mg PO TID 11/05/16 06/11/17 Aspirin [Lo-Dose Aspirin EC] 81 mg PO DAILY 06/11/17 06/11/17 Cholecalciferol (D-3) [Vitamin D] 1,000 unit PO DAILY 06/11/17 06/11/17 Metoprolol [Lopressor] 12.5 mg PO DAILY 06/11/17 06/11/17 Previous Rx's Medication Instructions Recorded HYDROcodone/Acet 5/325 mg [[place] 1 tab PO Q4H PRN 5 Days #15 tab 06/11/17 5-325 mg] Meclizine [Antivert] 25 mg PO TID PRN #3 tablet 09/27/17 Allergies Allergy/AdvReac Type Severity Reaction Status Date / Time No Known Allergies Allergy Verified 09/27/17 13:51 All systems ED: reviewed and negative except as stated. Constitutional: Denies: fever Eyes: Reports: as per HPI ENT ED: Reports: as per HPI Cardiovascular: Reports: as per HPI Respiratory: Denies: dyspnea Gastrointestinal: Reports: abdominal pain Genitourinary: Reports: as per HPI Musculoskeletal: Reports: as per HPI Integumentary: Reports: as per HPI Neurological: Reports: headache. Denies: weakness Psychiatric: Reports: as per HPI Endocrine: Reports: as per HPI Hematological/Lymphatic: Reports: as per HPI Allergic/Immunologic: Reports: as per HPI Past Medical History - Past Medical History Attestation: Yes The following information was validated with the patient. Medical history: Reports: arthritis, hypertension, kidney stones, migraine Surgical history: Reports: non-contributory, other Psychiatric history: Reports: anxiety, depression - Social History Smoking Status: Never smoker Smokeless Tobacco Status: No Alcohol use: Reports: none Drug use: Reports: none Physical Exam - General Limitations: no limitations General appearance: alert, in no apparent distress - Head Head exam: atraumatic, normocephalic, normal inspection - Eye Eye exam: Present: PERRL, EOMI. Absent: scleral icterus - ENT ENT exam: mucous membranes moist - Neck Neck exam: Present: full ROM - Chest Chest inspection: Present: symmetric chest wall rise - Respiratory Respiratory exam: Present: normal lung sounds bilaterally. Absent: respiratory distress, wheezes - Cardiovascular Cardiovascular exam: Present: normal rhythm, tachycardia, normal heart sounds - Abdominal Exam Abdominal exam: Present: soft, tenderness (Bilateral flanks). Absent: distention, guarding, rebound - Extremities Exam Extremities exam: Present: full ROM - Neurological Exam Neurological exam: Present: alert, oriented X3 - Psychiatric Psychiatric exam: Present: normal affect, normal mood - Skin Skin exam: Present: warm, intact Course Course Narrative: 68-year-old male presenting for multiple complaints. Patient states he has headache and abdominal pain when he urinates. On exam he has a nonfocal neurological exam. Bilateral flank pain. Otherwise physical exam is benign. He is alert and oriented 3. Tachycardic in the low 100s but otherwise hemodynamically stable. We will obtain basic laboratory analysis including troponin, EKG along with a CT of abdomen and pelvis. Disposition pending. Patient agrees with this plan. - Reevaluation(s) Reevaluation #1: Laboratory analysis shows leukocytosis, elevated bilirubin and urinary tract infection. CT of the abdomen and pelvis concerning for possible pancreatitis. Lipase is within normal limits. CT of the head shows no acute findings. Flu swab negative. Due to patient's tachycardia, leukocytosis and infection will p troy to admit the patient for sepsis at this time. Patient remains alert and oriented 3 and hemodynamically stable. Patient agrees with this plan. I spoke with the hospitalist on-call who agrees to accept the patient at this time. Vital Signs Temperature 99.5 F 12/14/18 15:53 Pulse Rate 115 12/14/18 15:53 Respiratory Rate 20 12/14/18 15:53 Blood Pressure 113/62 12/14/18 15:53 O2 Sat by Pulse Oximetry 98 12/14/18 15:53 Temperature 99.5 F 12/14/18 16:04 Pulse Rate 115 12/14/18 16:04 Respiratory Rate 20 12/14/18 16:04 Blood Pressure 113/62 12/14/18 16:04 O2 Sat by Pulse Oximetry 98 12/14/18 16:04 Oxygen Delivery Oxygen Delivery Room Air Medical Decision Making - Lab Data Result diagrams: 12/14/18 16:23 12/14/18 16:23 Lab Results 12/14/18 12/14/18 12/14/18 Range/Units 16:23 16:23 16:24 WBC 16.2 H (4.3-11.1) K/mcL RBC 4.35 (4.19-5.50) M/mcL Hgb 13.9 (12.9-16.9) g/dL Hct 42.3 (37.5-50.1) % MCV 97.2 (83.0-100.0) fL MCH 32.0 (28.0-33.3) pg MCHC 32.9 (31.6-35.5) g/dL RDW 12.2 (11.5-14.5) % Plt Count 224 (140-400) K/mcL MPV 10.8 (9.4-12.4) fL Immature Gran % 0.7 (0-4) % Seg Neutrophils % 82.3 % Lymphocytes % 9.9 % Monocytes % 6.7 % Eosinophils % 0.2 % Basophils % 0.2 % Neutrophils # 13.3 H (1.6-8.9) K/mcL Lymphocytes # 1.6 (0.6-4.6) K/mcL Monocytes # 1.1 (0.0-1.3) K/mcL Eosinophils # 0.0 (0.0-0.6) K/mcL Basophils # 0.0 (0.0-0.2) K/mcL Sodium 135 L (136-145) mEq/L Potassium 3.8 (3.5-5.1) mEq/L Chloride 106 (98-107) mEq/L Carbon Dioxide 27 (23-29) mEq/L BUN 12 (8-23) mg/dL Creatinine 0.99 (0.70-1.30) mg/dL Est GFR ( Amer) > 60 (> 60) Est GFR (Non-Af Amer) > 60 (> 60) BUN/Creatinine Ratio 12 (6-26) Glucose 139 H (70-105) mg/dL Calculated Osmolality 282 (280-300) Lactic Acid (0.5-2.2) mmol/L Calcium 9.3 (8.6-10.3) mg/dL Total Bilirubin 2.0 H (0.3-1.0) mg/dL Direct Bilirubin 0.3 H (0.0-0.2) mg/dL Indirect Bilirubin 1.7 H (0.0-1.2) mg/dL AST 13 (13-39) Units/L ALT 13 (7-52) Units/L Alkaline Phosphatase 83 (34-104) Units/L Troponin I < 0.03 (< 0.04) ng/mL Serum Total Protein 7.5 (6.4-8.9) g/dL Albumin 4.2 (3.5-5.7) g/dL Globulin 3.3 (2.4-3.5) g/dL Albumin/Globulin Ratio 1.3 (1.1-2.2) Lipase 6 L (11-82) Units/L Urine Color Dark Yellow (Yellow) Urine Clarity Clear (Clear) Urine pH 7.0 (5.0-8.0) pH Units Ur Specific [place] 1.022 (1.010-1.025) Urine Protein 30 H (Neg-Trace) mg/dL Urine Glucose (UA) Normal (Normal) mg/dL Urine Ketones Trace H (Negative) mg/dL Urine Blood Trace H (Negative) Urine Nitrite Negative (Negative) Urine Bilirubin Negative (Negative) Urine Urobilinogen Normal (Normal) mg/dL Ur Leukocyte Esterase Moderate H (Negative) Urine Microscopic RBC 0-3 (0-3) per hpf Urine Microscopic WBC 30-50 H (0-3) per hpf Urine Bacteria Few (None-Few) per hpf Urine Mucus Few (Few) Urine Yeast Few H (None Seen) per hpf Ur Culture Indicated? YES A (NO) 12/14/18 Range/Units 17:15 WBC (4.3-11.1) K/mcL RBC (4.19-5.50) M/mcL Hgb (12.9-16.9) g/dL Hct (37.5-50.1) % MCV (83.0-100.0) fL MCH (28.0-33.3) pg MCHC (31.6-35.5) g/dL RDW (11.5-14.5) % Plt Count (140-400) K/mcL MPV (9.4-12.4) fL Immature Gran % (0-4) % Seg Neutrophils % % Lymphocytes % % Monocytes % % Eosinophils % % Basophils % % Neutrophils # (1.6-8.9) K/mcL Lymphocytes # (0.6-4.6) K/mcL Monocytes # (0.0-1.3) K/mcL Eosinophils # (0.0-0.6) K/mcL Basophils # (0.0-0.2) K/mcL Sodium (136-145) mEq/L Potassium (3.5-5.1) mEq/L Chloride (98-107) mEq/L Carbon Dioxide (23-29) mEq/L BUN (8-23) mg/dL Creatinine (0.70-1.30) mg/dL Est GFR ( Amer) (> 60) Est GFR (Non-Af Amer) (> 60) BUN/Creatinine Ratio (6-26) Glucose (70-105) mg/dL Calculated Osmolality (280-300) Lactic Acid 1.0 (0.5-2.2) mmol/L Calcium (8.6-10.3) mg/dL Total Bilirubin (0.3-1.0) mg/dL Direct Bilirubin (0.0-0.2) mg/dL Indirect Bilirubin (0.0-1.2) mg/dL AST (13-39) Units/L ALT (7-52) Units/L Alkaline Phosphatase (34-104) Units/L Troponin I (< 0.04) ng/mL Serum Total Protein (6.4-8.9) g/dL Albumin (3.5-5.7) g/dL Globulin (2.4-3.5) g/dL Albumin/Globulin Ratio (1.1-2.2) Lipase (11-82) Units/L Urine Color (Yellow) Urine Clarity (Clear) Urine pH (5.0-8.0) pH Units Ur Specific [place] (1.010-1.025) Urine Protein (Neg-Trace) mg/dL Urine Glucose (UA) (Normal) mg/dL Urine Ketones (Negative) mg/dL Urine Blood (Negative) Urine Nitrite (Negative) Urine Bilirubin (Negative) Urine Urobilinogen (Normal) mg/dL Ur Leukocyte Esterase (Negative) Urine Microscopic RBC (0-3) per hpf Urine Microscopic WBC (0-3) per hpf Urine Bacteria (None-Few) per hpf Urine Mucus (Few) Urine Yeast (None Seen) per hpf Ur Culture Indicated? (NO) - EKG Data EKG #1 EKG attestation: Yes I reviewed and interpreted this EKG. EKG results narrative: Sinus tachycardia. 109 beats per minute. [place] interval 152, QRS 95, QTC 403. No sign of acute ST segment elevation or ischemia. Compared to previous EKG completed on 04/09/2017 no significant changes noted Attestation Statement - Attestation Attestation: Rhina Salvador D.O., examined this patient and my medical decision-making was reviewed with the Resident Physician. I agree with the documented findings, disposition and treatment plan as described except to the extent set forth below.
[2018-12-14 16:33] LABS: Bilirubin,Urine Negative (Negative); Blood,Urine Trace (Negative); Clarity,Urine Clear (Clear); Color,Urine Dark Yellow (Yellow); Glucose,Urine (UA) Normal (Normal); Ketones,Urine Trace mg/dL (Negative); Leukocyte Esterase,Urine Moderate (Negative); Nitrite,Urine Negative (Negative); Protein,Urine 30 mg/dL (Neg-Trace); Specific Gravity,Urine 1.022 (1.010-1.025); Urobilinogen,Urine Normal (Normal)
[2018-12-14 16:35] LABS: Basophils % 0.2 %; Eosinophils % 0.2 %; Hematocrit 42.3 % (37.5-50.1); Hemoglobin 13.9 g/dL (12.9-16.9); Immature Granulocytes % 0.7 % (0-4); Lymphocytes # 1.6 K/mcL (0.6-4.6); Lymphocytes % 9.9 %; Mean Corpuscular HGB Conc 32.9 g/dL (31.6-35.5); Mean Corpuscular Volume 97.2 fL (83.0-100.0); Mean Platelet Volume 10.8 fL (9.4-12.4); Monocytes # 1.1 K/mcL (0.0-1.3); Monocytes % 6.7 %; Neutrophils # 13.3 K/mcL (1.6-8.9); Platelet Count 224 K/mcL (140-400); Red Blood Count 4.35 M/mcL (4.19-5.50); Red Cell Distribution Width 12.2 % (11.5-14.5); Segmented Neutrophils % 82.3 %; White Blood Count 16.2 K/mcL (4.3-11.1)
[2018-12-14 16:52] LABS: Bacteria,Urine Few per hpf (None-Few); Mucus,Urine Few (Few); RBC,Urine 0-3 per hpf (0-3); WBC,Urine 30-50 per hpf (0-3); Yeast,Urine Few per hpf (None Seen)
[2018-12-14] MEDS ORDERED: cefTRIAXone 1,000 MG in Water for inj. (sterile) 10 ML IVP ONE (16:55)
[2018-12-14 16:57] LABS: Alanine Aminotransferase 13 Units/L (7-52); Albumin 4.2 g/dL (3.5-5.7); Albumin/Globulin Ratio 1.3 (1.1-2.2); Alkaline Phosphatase 83 Units/L (34-104); Aspartate Amino Transferase 13 Units/L (13-39); BUN/Creatinine Ratio 12 (6-26); Bilirubin,Direct 0.3 mg/dL (0.0-0.2); Bilirubin,Indirect 1.7 mg/dL (0.0-1.2); Blood Urea Nitrogen 12 mg/dL (8-23); Calcium 9.3 mg/dL (8.6-10.3); Carbon Dioxide 27 mEq/L (23-29); Chloride 106 mEq/L (98-107); Globulin 3.3 g/dL (2.4-3.5); Glucose 139 mg/dL (70-105); Lipase 6 Units/L (11-82); Osmolality,Calculated 282 (280-300); Potassium 3.8 mEq/L (3.5-5.1); Sodium 135 mEq/L (136-145); Total Protein 7.5 g/dL (6.4-8.9); Troponin I < 0.03 ng/mL (< 0.04); eGFR For African Americans > 60 (> 60); eGFR For Non-African Americans > 60 (> 60)
[2018-12-14] MEDS ORDERED: Naloxone 0.4 MG/ML INJ IVP PRN (19:31)
[2018-12-14] MEDS ORDERED: 0.9 % Sodium Chloride 1,000 ML IVC SCH (19:45)
--- NOTE | 2018-12-14 20:14 | Internal Med History&Physical ---
Date of Encounter: 12/14/18 Time of Encounter: 19:36 Internal Medicine - H&P: HPI Chief complaint: Abdominal pain/headache History of present illness: Mr. Kuhn is a 68 year old male with a past medical history of GERD, hypertension, hyperlipidemia stomach ulcers, and nephrolithiasis who presented to the ED with complaints of headache and abdominal pain. Patient reports symptoms began last night which initially began with a headache similar to quality and intensity of his normal headaches, however, he began shortly after to note abdominal discomfort described as a generalized colicky dull ache with some radiation to his back. No reports of nausea, vomiting, diarrhea. No association with food. He also noted lower suprapubic pain occurring at the end of voiding. No dysuria per se. Has been reporting clear discharge from his penis. Patient currently monogamous relationship with his significant other and denies intercourse with anyone else. As far as he knows, patient feels his significant other is also been monogamous. Patient otherwise denies any fever, chills, cough, chest pain, shortness of breath. On arrival patient was afebrile, hemodynamically stable. He was mildly tachycardic. Initial laboratory workup notable for a leukocytosis of 16.2. UA showed moderate leukocyte esterase. Fatty induration noted on abdominal CT which could possibly correlated with acute pancreatitis. However patient's lipase level was was well within normal limits. Urine studies for gonorrhea/chlamydia were obtained. Patient was given 2 L fluid bolus and one- time dose of ceftriaxone. Admitted for possible UTI. Past Med Surg Social Fam HX - Past Medical History Medical history: arthritis, hypertension, kidney stones, migraine Additional medical history: chronic back pain Psychiatric history: anxiety, depression - Past Surgical History Surgical History: non-contributory, other Additional surgical history: lumbar sx, hernia, lithotripsy,colonoscopy, angiography. T&A - Social History Smoking Status: Never smoker Smokeless Tobacco Status: No Alcohol use: none Drug use: none Internal Medicine - H&P: Meds Clorazepate [Tranxene] 7.5 mg PO 0800,1600,0000 11/05/16 [History] Gabapentin [Neurontin] 400 mg PO 0800,1600,0000 11/05/16 [History] Metoprolol [Lopressor] 12.5 mg PO DAILY 06/11/17 [History] Lisinopril 2.5 mg PO HS 12/14/18 [History] Lisinopril [Zestril] 10 mg PO DAILY@0800 12/14/18 [History] Allergy/AdvReac Type Severity Reaction Status Date / Time No Known Allergies Allergy Verified 09/27/17 13:51 All Systems PM: A 10-system review of systems was performed and is negative for pertinent findings except as documented above in the HPI. - Constitutional Constitutional: no chills, no fever(s), no night sweats - EENT Eyes: no change in vision, no discharge, no pain, no photophobia Ears: no ear discharge, no ear pain, no tinnitus Nose, mouth and throat: no dysphagia, no nasal discharge, no neck pain, no sore throat - Cardiovascular Cardiovascular ROS IM: no chest pain, no diaphoresis, no dyspnea, no lightheadedness, no palpitations, no syncope - Respiratory Respiratory: no cough, no dyspnea, no wheezing, no excessive phlegm production - Gastrointestinal Gastrointestinal: no abdominal pain, no diarrhea, no hematemesis, no hematochezia, no melena, no nausea, no vomiting - Musculoskeletal Musculoskeletal ROS IM: no numbness, no tingling - Integumentary Integumentary IM: no rash, no unusual bruising - Neurological Neurological ROS: no confusion, no convulsions, no focal weakness, no numbness, no tingling, no tremor(s) - Hematologic/Lymphatic Hematologic/Lymphatic: no easy bruising - Constitutional Vitals: Temp Pulse Resp BP Pulse Ox 99.5 F 95 16 127/77 96 12/14/18 16:04 12/14/18 18:26 12/14/18 18:26 12/14/18 18:26 12/14/18 18:26 Exam: General: Alert and oriented Skin:Normal color, no rash, no lesions. HEENT:EOM, pupils equal, round and reactive. Cardiovascular:Normal S1 & S2, no rubs, murmurs or gallops. No JVD. Pulse regul ar. Lungs:Normal breath sounds, no wheezes or crackles. Abdomen:Soft, non-tender, no rigidity. Extremities:No deformity, no edema or tenderness, no joint swelling or clubbing. Neurological:Normal cognition and motor skills. Pulses:Carotid and radial pulses normal +2. Rest of the physical exam is non contributory Internal Med - H&P Results - Labs CBC & Chem 7: 12/15/18 05:13 12/15/18 05:13 Labs: Short CBC 12/14/18 Range/Units 16:23 WBC 16.2 H (4.3-11.1) K/mcL Hgb 13.9 (12.9-16.9) g/dL Hct 42.3 (37.5-50.1) % Plt Count 224 (140-400) K/mcL Neutrophils # 13.3 H (1.6-8.9) K/mcL BMP 12/14/18 16:23 Sodium 135 L Potassium 3.8 Chloride 106 Carbon Dioxide 27 BUN 12 Creatinine 0.99 Glucose 139 H Calcium 9.3 Cardiac Enzymes 12/14/18 Range/Units 16:23 Troponin I < 0.03 (< 0.04) ng/mL Liver Function 12/14/18 Range/Units 16:23 Total Bilirubin 2.0 H (0.3-1.0) mg/dL Direct Bilirubin 0.3 H (0.0-0.2) mg/dL AST 13 (13-39) Units/L ALT 13 (7-52) Units/L Alkaline Phosphatase 83 (34-104) Units/L Albumin 4.2 (3.5-5.7) g/dL Urine 12/14/18 Range/Units 16:24 Urine Color Dark Yellow (Yellow) Urine Clarity Clear (Clear) Urine pH 7.0 (5.0-8.0) pH Units Ur Specific [place] 1.022 (1.010-1.025) Urine Protein 30 H (Neg-Trace) mg/dL Urine Glucose (UA) Normal (Normal) mg/dL - Impressions ITS Impressions Head CT 12/14/18 16:58 IMPRESSION: No acute intracranial abnormality. White matter hypoattenuation described is typical of microvascular ischemic disease or as sequela of dysmyelinating/demyelinating processes. D/ / Doug Esquivel / Doug Esquivel Interpreting Provider: Doug Esquivel Abdomen/Pelvis CT 12/14/18 17:03 IMPRESSION: 1. Mild acute pancreatitis may account for findings adjacent to the pancreatic neck; recommend correlating with serum amylase/lipase levels. 2. No other CT evidence of an acute intra-abdominal or intrapelvic process. 3. Diverticulosis coli without CT evidence of acute diverticulitis. 4. Grade 1 anterolisthesis L5 on S1, the result of degenerative changes. D/ / Doug Esquivel / Doug Esquivel Interpreting Provider: Doug Esquivel Chest X-Ray 12/14/18 17:27 IMPRESSION: No radiographic evidence of acute cardiopulmonary disease. D/ / Doug Esquivel / Doug Esquivel Interpreting Provider: Doug Esquivel - Assessment and Plan (1) UTI (urinary tract infection) Current Visit: Yes Status: Acute Assessment and plan: Patient reporting pain at the end of voiding. No dysuria, frequency or urgency. UA notable for moderate leukocyte esterase. Given leukocytosis, concern for possible UTI. -Continue ceftriaxone -Follow-up urine culture Qualifiers: Urinary tract infection type: acute cystitis Hematuria presence: without hematuria Qualified Code(s): N30.00 - Acute cystitis without hematuria (2) Abnormal CT scan Current Visit: Yes Status: Acute Assessment and plan: CT scan of the abdomen showing fatty induration near the head of the pancreas which may correlate with acute pancreatitis. Patient however has normal lipase and abdominal examination relatively benign. Low suspicion for acute pancreatitis at this time. (3) Sepsis Current Visit: Yes Status: Acute Assessment and plan: Found to have tachycardia associated with leukocytosis. At this times was of infection suspected to be secondary to UTI. Patient status post 2 L fluid bolus. Blood pressure remained stable. -Continue supportive fluids -Continue ceftriaxone -Follow-up urine and blood cultures Qualifiers: Sepsis type: sepsis due to unspecified organism Sepsis acute organ dysfunction status: unspecified Qualified Code(s): A41.9 - Sepsis, unspecified organism (4) Essential hypertension Current Visit: Yes Status: Chronic Assessment and plan: Blood pressure stable. Resume home antihypertensives (5) DVT prophylaxis Current Visit: Yes Status: Acute Assessment and plan: Subcutaneous heparin - Time Spent With Patient Total time spent is greater than 50% in coordination of care (as documented) at patient's floor/unit and/or counseling patient:
[2018-12-14] MEDS ORDERED: Ketorolac 15 MG/ML VIAL IVP PRN (20:32)
[2018-12-14 21:05] LABS: Chlamydia Trachomatis DNA Ur NOT DETECTED (Not Detect)
[2018-12-14] MEDS ORDERED: Azithromycin 500 MG in 0.9 % Sodium Chloride 250 ML IVPB ONE (23:00)
[2018-12-15] MEDS: Gabapentin 400 MG CAPSULE PO SCH ×3 (00:16→15:52)
[2018-12-15 05:55] LABS: Basophils # 0.1 K/mcL (0.0-0.2); Basophils % 0.4 %; Eosinophils # 0.1 K/mcL (0.0-0.6); Eosinophils % 0.6 %; Hematocrit 37.4 % (37.5-50.1); Immature Granulocytes % 0.4 % (0-4); Lymphocytes # 2.1 K/mcL (0.6-4.6); Lymphocytes % 15.2 %; Mean Corpuscular HGB Conc 32.1 g/dL (31.6-35.5); Mean Corpuscular Hemoglobin 31.8 pg (28.0-33.3); Mean Corpuscular Volume 99.2 fL (83.0-100.0); Monocytes # 1.2 K/mcL (0.0-1.3); Monocytes % 8.4 %; Neutrophils # 10.5 K/mcL (1.6-8.9); Platelet Count 195 K/mcL (140-400); Red Blood Count 3.77 M/mcL (4.19-5.50); Red Cell Distribution Width 12.5 % (11.5-14.5)
[2018-12-15 06:02] LABS: INR 1.2; Prothrombin Time 13.5 Seconds (9.4-12.1)
[2018-12-15 06:05] LABS: Activated Partial Thrombo Time 30.9 Seconds (26.0-36.0)
[2018-12-15 06:16] LABS: Alanine Aminotransferase 9 Units/L (7-52); Albumin 3.3 g/dL (3.5-5.7); Albumin/Globulin Ratio 1.3 (1.1-2.2); Alkaline Phosphatase 64 Units/L (34-104); Aspartate Amino Transferase 12 Units/L (13-39); BUN/Creatinine Ratio 12 (6-26); Bilirubin,Total 1.4 mg/dL (0.3-1.0); Blood Urea Nitrogen 11 mg/dL (8-23); Calcium 7.9 mg/dL (8.6-10.3); Carbon Dioxide 28 mEq/L (23-29); Chloride 110 mEq/L (98-107); Globulin 2.6 g/dL (2.4-3.5); Glucose 100 mg/dL (70-105); Osmolality,Calculated 283 (280-300); Potassium 3.8 mEq/L (3.5-5.1); Sodium 137 mEq/L (136-145); Total Protein 5.9 g/dL (6.4-8.9); eGFR For African Americans > 60 (> 60); eGFR For Non-African Americans > 60 (> 60)
--- NOTE | 2018-12-15 07:41 | Internal Med Progress Note ---
Hospitalist Progress Note - Encounter Date of Encounter: 12/15/18 Time of Encounter: 08:00 - Subjective Interval History: No acute events overnight - Exam Vitals: Temp Pulse Resp BP Pulse Ox 100.3 F H 104 16 104/56 94 12/15/18 07:07 12/15/18 07:07 12/15/18 07:07 12/15/18 07:07 12/15/18 07:07 Exam: General: Alert and oriented Skin:Normal color, no rash, no lesions. HEENT:EOM, pupils equal, round and reactive. Cardiovascular:Normal S1 & S2, no rubs, murmurs or gallops. No JVD. Pulse regular. Lungs:Normal breath sounds, no wheezes or crackles. Abdomen:Soft, non-tender, no rigidity. Extremities:No deformity, no edema or tenderness, no joint swelling or clubbing. Neurological:Normal cognition and motor skills. Pulses:Carotid and radial pulses normal +2. Rest of the physical exam is non contributory - Assessment and Plan (1) Sepsis Current Visit: Yes Status: Acute Assessment and Plan: Found to have tachycardia associated with leukocytosis. At this times was of infection suspected to be secondary to UTI. Continue IV fluids and ceftriaxone (2) UTI (urinary tract infection) Current Visit: Yes Status: Acute Assessment and Plan: Patient reporting pain at the end of voiding. No dysuria, frequency or urgency. UA notable for moderate leukocyte esterase. Given leukocytosis, concern for possible UTI. Continue ceftriaxone. Follow-up urine culture (3) Essential hypertension Current Visit: Yes Status: Chronic Assessment and Plan: Blood pressure stable. Resume home antihypertensives (4) Urinary retention Current Visit: Yes Status: Acute Assessment and Plan: Patient complains of dribbling and urinary retention. Complains he can't tolerate flomax Urology recs appreciated. Obtain badder scan (5) DVT prophylaxis Current Visit: Yes Status: Acute Assessment and Plan: Subcutaneous heparin - Time Spent with Patient Total time spent is greater than 50% in coordination of care (as documented) at patient's floor/unit and/or counseling patient: Internal Medicine: Result - Labs CBC & Chem 7: 12/15/18 05:13 12/15/18 05:13 Labs: Short CBC 12/14/18 12/15/18 Range/Units 16:23 05:13 WBC 16.2 H 14.0 H (4.3-11.1) K/mcL Hgb 13.9 12.0 L D (12.9-16.9) g/dL Hct 42.3 37.4 L (37.5-50.1) % Plt Count 224 195 (140-400) K/mcL Neutrophils # 13.3 H 10.5 H (1.6-8.9) K/mcL BMP 12/14/18 12/15/18 16:23 05:13 Sodium 135 L 137 Potassium 3.8 3.8 Chloride 106 110 H Carbon Dioxide 27 28 BUN 12 11 Creatinine 0.99 0.89 Glucose 139 H 100 Calcium 9.3 7.9 L Cardiac Enzymes 12/14/18 Range/Units 16:23 Troponin I < 0.03 (< 0.04) ng/mL Liver Function 12/14/18 12/15/18 Range/Units 16:23 05:13 Total Bilirubin 2.0 H 1.4 H (0.3-1.0) mg/dL Direct Bilirubin 0.3 H (0.0-0.2) mg/dL AST 13 12 L (13-39) Units/L ALT 13 9 (7-52) Units/L Alkaline Phosphatase 83 64 (34-104) Units/L Albumin 4.2 3.3 L (3.5-5.7) g/dL Urine 12/14/18 Range/Units 16:24 Urine Color Dark Yellow (Yellow) Urine Clarity Clear (Clear) Urine pH 7.0 (5.0-8.0) pH Units Ur Specific [place] 1.022 (1.010-1.025) Urine Protein 30 H (Neg-Trace) mg/dL Urine Glucose (UA) Normal (Normal) mg/dL - ABG Interpretation ABG results: PT/INR, D-dimer PT 13.5 Seconds (9.4-12.1) H 12/15/18 05:13 - Impressions Impressions Head CT 12/14/18 16:58 IMPRESSION: No acute intracranial abnormality. White matter hypoattenuation described is typical of microvascular ischemic disease or as sequela of dysmyelinating/demyelinating processes. D/ / Doug Esquivel / Doug Esquivel Interpreting Provider: Doug Esquivel Abdomen/Pelvis CT 12/14/18 17:03 IMPRESSION: 1. Mild acute pancreatitis may account for findings adjacent to the pancreatic neck; recommend correlating with serum amylase/lipase levels. 2. No other CT evidence of an acute intra-abdominal or intrapelvic process. 3. Diverticulosis coli without CT evidence of acute diverticulitis. 4. Grade 1 anterolisthesis L5 on S1, the result of degenerative changes. D/ / Doug Esquivel / Doug Esquivel Interpreting Provider: Doug Esquivel Chest X-Ray 12/14/18 17:27 IMPRESSION: No radiographic evidence of acute cardiopulmonary disease. D/ / Doug Esquivel / Doug Esquivel Interpreting Provider: Doug Esquivel Consult Discharge Plan - Plan Referrals: Amita Dior CNP [Primary Care Provider] - (1) Sepsis Qualifiers: Sepsis type: sepsis due to unspecified organism Sepsis acute organ dysfunction status: unspecified Qualified Code(s): A41.9 - Sepsis, unspecified organism (2) UTI (urinary tract infection) Qualifiers: Urinary tract infection type: acute cystitis Hematuria presence: with hematuria Qualified Code(s): N30.01 - Acute cystitis with hematuria
[2018-12-15] MEDS: *HR* Heparin 5,000 UNIT/ML VIAL SQ SCH ×3 (08:29→20:21)
[2018-12-15] MEDS: cefTRIAXone 1,000 MG in 0.9 % Sodium Chloride Mini Bag 100 ML IVPB SCH (08:47)
[2018-12-15] MEDS ORDERED: cefTRIAXone 1,000 MG in Water for inj. (sterile) 10 ML IVPB SCH (09:00)
--- NOTE | 2018-12-15 11:38 | Urology - Consult Note ---
<Suzan Urbina N - Last Filed: 12/15/18 13:51> Date of Encounter: 12/15/18 Time of Encounter: 11:00 - Assessment and Plan (1) UTI (urinary tract infection) Current Visit: Yes Status: Acute Assessment and plan: Patient is a 68-year-old male who presents with a urinary tract infection, preliminary urine culture positive for gram-negative rods. Vital signs are stable and afebrile. White blood cell count is trending down. Patient has been placed on IV Rocephin. Patient is also taking Flomax, but he reports he discontinued this previously secondary to leg pain. Patient also stated he has chronic back problems which has led to bilateral lower extremity neuropathy. He is seeing Dr. Lopez at [place] for this. I have ordered a bladder scan in order to evaluate for significant postvoid residual and possible incomplete bladder emptying. Patient likely has BPH with LUTS contributing to voiding dysfunction. Recommend to continue IV Rocephin until final urine and blood cultures are resulted. Qualifiers: Urinary tract infection type: acute cystitis Hematuria presence: without hematuria Qualified Code(s): N30.00 - Acute cystitis without hematuria (2) BPH w urinary obs/LUTS Current Visit: Yes Status: Acute Assessment and plan: Patient is a 68-year-old male who presents with BPH with lower urinary tract symptoms as well as a urinary tract infection. Patient is unsure if Flomax alleviated his voiding symptoms previously, but he is willing to try again. Bladder scan is pending. Patient is unsure when the last time he was screened for prostate cancer. He denies any known family history of prostate cancer. P jonah will likely benefit from PSA, but this would be preferred at his outpatient follow-up once his UTI is cleared. Urology CN:TALHA Consult date: 12/15/18 Reason for consult Urology: Other (dysuria, suprapubic pain, urinary urgency, BPH) Requesting physician: Puneet Aiken History of present illness: Patient is a 68-year-old male who presents with a history of urinary urgency, suprapubic discomfort and dysuria. Patient is well-known to our service, and he is established with Dr. Aguirre. Patient has a long-standing history of nephrolithiasis (calcium oxalate) with most recent ureteroscopy from May 2017. Patient reports a 2 day history of suprapubic discomfort after urination. Patient reports he awakened with a severe headache and vague abdominal discomfort. Patient reports his abdominal discomfort worsened after urination, and he subsequently presented to the emergency department for further evaluation. Patient underwent a CT of the abdomen and pelvis that was relatively unremarkable from a urologic standpoint. Patient requested urethritis cultures, and they were negative as well. Patient was placed on IV Rocephin, and he reports his abdominal pain is resolving. Patient now is concerned for dysuria, urinary urgency and frequency. Patient denies any gross hematuria, flank pain, fever, chills, incontinence or nocturia. Patient reports he has an upcoming appointment at [place] [facility]. He denies any known family history of malignancy. Past Med Surg Social Fam HX - Past Medical History Medical history: arthritis, hypertension, kidney stones, migraine Additional medical history: chronic back pain Psychiatric history: anxiety, depression - Past Surgical History Surgical History: non-contributory, other Additional surgical history: lumbar sx, hernia, lithotripsy,colonoscopy, angiography. T&A - Social History Smoking Status: Never smoker Smokeless Tobacco Status: No Alcohol use: none Drug use: none - Additional Family History Additional family history: No known documented family history of malignancy Medications and Allergies Clorazepate [Tranxene] 7.5 mg PO 0800,1600,0000 11/05/16 [History] Gabapentin [Neurontin] 400 mg PO 0800,1600,0000 11/05/16 [History] Metoprolol [Lopressor] 12.5 mg PO DAILY 06/11/17 [History] Lisinopril 2.5 mg PO HS 12/14/18 [History] Lisinopril [Zestril] 10 mg PO DAILY@0800 12/14/18 [History] Allergy/AdvReac Type Severity Reaction Status Date / Time No Known Allergies Allergy Verified 09/27/17 13:51 Review of Systems - Constitutional no chills, no fatigue, no fever(s) - EENT Nose, mouth and throat: headache(s), no dizziness - Cardiovascular no chest pain, no diaphoresis, no dyspnea - Respiratory no cough, no dyspnea - Gastrointestinal abdominal pain, other (diarrhea), no nausea, no vomiting - Genitourinary change in urinary stream, dysuria, urinary frequency, urinary hesitancy, urinary urgency, no difficulty urinating, no flank pain, no hematuria, no nocturia, no post void dribbling, no urinary incontinence - Musculoskeletal back pain, muscle weakness, numbness - Integumentary no erythema, no rash - Neurological no confusion, no syncope - Psychiatric no anxiety, no confusion - Hematologic/Lymphatic no easy bleeding, no easy bruising - Allergic/Immunologic no throat swelling, no wheezing Exam Initial Vital Signs Temp Pulse Resp BP Pulse Ox 99.5 F 115 20 113/62 98 12/14/18 15:53 12/14/18 15:53 12/14/18 15:53 12/14/18 15:53 12/14/18 15:53 - General physical appearance Present: no distress, no pain - Eyes Present: PERRL, normal ocular movement - ENT Present: normal nares, no hearing loss, no congestion - Neck Present: no masses, trachea midline, no lymphadenopathy - Respiratory Present: normal respiratory effort - Cardiovascular Cardiovascular exam IM: RRR - Abdomen Abdomen: Present: soft, non tender. Absent: distended - Genitourinary other (Urine appears transparent, clear yellow and bedside urinal; no CVAT) - Integumentary Present: no rash, no abnormal pigmentation - Neurologic Present: normal coordination - Musculoskeletal Present: other (Normal posture) Urology Results - Labs 12/15/18 05:13 12/15/18 05:13 Abnormal lab results WBC 14.0 K/mcL (4.3-11.1) H 12/15/18 05:13 RBC 3.77 M/mcL (4.19-5.50) L 12/15/18 05:13 Hgb 12.0 g/dL (12.9-16.9) L D 12/15/18 05:13 Hct 37.4 % (37.5-50.1) L 12/15/18 05:13 Neutrophils # 10.5 K/mcL (1.6-8.9) H 12/15/18 05:13 PT 13.5 Seconds (9.4-12.1) H 12/15/18 05:13 Sodium 135 mEq/L (136-145) L 12/14/18 16:23 Chloride 110 mEq/L (98-107) H 12/15/18 05:13 Glucose 139 mg/dL (70-105) H 12/14/18 16:23 Calcium 7.9 mg/dL (8.6-10.3) L 12/15/18 05:13 Total Bilirubin 1.4 mg/dL (0.3-1.0) H 12/15/18 05:13 Direct Bilirubin 0.3 mg/dL (0.0-0.2) H 12/14/18 16:23 Indirect Bilirubin 1.7 mg/dL (0.0-1.2) H 12/14/18 16:23 AST 12 Units/L (13-39) L 12/15/18 05:13 Serum Total Protein 5.9 g/dL (6.4-8.9) L 12/15/18 05:13 Albumin 3.3 g/dL (3.5-5.7) L 12/15/18 05:13 Lipase 6 Units/L (11-82) L 12/14/18 16:23 Urine Protein 30 mg/dL (Neg-Trace) H 12/14/18 16:24 Urine Ketones Trace mg/dL (Negative) H 12/14/18 16:24 Urine Blood Trace (Negative) H 12/14/18 16:24 Ur Leukocyte Esterase Moderate (Negative) H 12/14/18 16:24 Urine Microscopic WBC 30-50 per hpf (0-3) H 12/14/18 16:24 Urine Yeast Few per hpf (None Seen) H 12/14/18 16:24 Ur Culture Indicated? YES (NO) A 12/14/18 16:24 Diabetes panel 12/14/18 12/15/18 Range/Units 16:23 05:13 Sodium 135 L 137 (136-145) mEq/L Potassium 3.8 3.8 (3.5-5.1) mEq/L Chloride 106 110 H (98-107) mEq/L Carbon Dioxide 27 28 (23-29) mEq/L BUN 12 11 (8-23) mg/dL Creatinine 0.99 0.89 (0.70-1.30) mg/dL Glucose 139 H 100 (70-105) mg/dL Calcium 9.3 7.9 L (8.6-10.3) mg/dL AST 13 12 L (13-39) Units/L ALT 13 9 (7-52) Units/L Alkaline Phosphatase 83 64 (34-104) Units/L Albumin 4.2 3.3 L (3.5-5.7) g/dL Calcium panel 12/14/18 12/15/18 Range/Units 16:23 05:13 Calcium 9.3 7.9 L (8.6-10.3) mg/dL Albumin 4.2 3.3 L (3.5-5.7) g/dL Pituitary panel 12/14/18 12/15/18 Range/Units 16:23 05:13 Sodium 135 L 137 (136-145) mEq/L Potassium 3.8 3.8 (3.5-5.1) mEq/L Chloride 106 110 H (98-107) mEq/L Carbon Dioxide 27 28 (23-29) mEq/L BUN 12 11 (8-23) mg/dL Creatinine 0.99 0.89 (0.70-1.30) mg/dL Glucose 139 H 100 (70-105) mg/dL Calcium 9.3 7.9 L (8.6-10.3) mg/dL Adrenal panel 12/14/18 12/15/18 Range/Units 16:23 05:13 Sodium 135 L 137 (136-145) mEq/L Potassium 3.8 3.8 (3.5-5.1) mEq/L Chloride 106 110 H (98-107) mEq/L Carbon Dioxide 27 28 (23-29) mEq/L BUN 12 11 (8-23) mg/dL Creatinine 0.99 0.89 (0.70-1.30) mg/dL Glucose 139 H 100 (70-105) mg/dL Calcium 9.3 7.9 L (8.6-10.3) mg/dL Total Bilirubin 2.0 H 1.4 H (0.3-1.0) mg/dL AST 13 12 L (13-39) Units/L ALT 13 9 (7-52) Units/L Alkaline Phosphatase 83 64 (34-104) Units/L Albumin 4.2 3.3 L (3.5-5.7) g/dL All other labs normal. - Imaging CT scan - abdomen: report reviewed, image reviewed CT scan - pelvis: report reviewed, image reviewed Consult Discharge Plan - Plan Referrals: Amita Dior, DANIELLE [Primary Care Provider] - <Yakov Aguirre - Last Filed: 12/15/18 19:35> Date of Encounter: 12/15/18 - Assessment and Plan (1) UTI (urinary tract infection) Current Visit: Yes Status: Acute Assessment and plan: I personally reviewed the CT scan and agree that there is no urologic surgical issue. At the time of my dictation, his urine culture is growing gram-negative bacteria. Bladder scan was not concerning. He has been seen in the past for BPH and voiding issues. I think his acute increase in symptoms is secondary to the UTI. Recommend hospitalization until the final culture is available then discharged with 14 days of culture specific antibiotics as long as his symptoms are controlled. 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 He is actually scheduled to see a gastrointestinal doctor on December 25 in [place]. We discussed that his chronic diarrhea may have increased his risk for the current UTI. Qualifiers: Urinary tract infection type: acute cystitis Hematuria presence: without hematuria Qualified Code(s): N30.00 - Acute cystitis without hematuria Exam Initial Vital Signs Temp Pulse Resp BP Pulse Ox 99.5 F 115 20 113/62 98 12/14/18 15:53 12/14/18 15:53 12/14/18 15:53 12/14/18 15:53 12/14/18 15:53 Urology Results - Labs 12/15/18 05:13 12/15/18 05:13 Abnormal lab results WBC 14.0 K/mcL (4.3-11.1) H 12/15/18 05:13 RBC 3.77 M/mcL (4.19-5.50) L 12/15/18 05:13 Hgb 12.0 g/dL (12.9-16.9) L D 12/15/18 05:13 Hct 37.4 % (37.5-50.1) L 12/15/18 05:13 Neutrophils # 10.5 K/mcL (1.6-8.9) H 12/15/18 05:13 PT 13.5 Seconds (9.4-12.1) H 12/15/18 05:13 Sodium 135 mEq/L (136-145) L 12/14/18 16:23 Chloride 110 mEq/L (98-107) H 12/15/18 05:13 Glucose 139 mg/dL (70-105) H 12/14/18 16:23 Calcium 7.9 mg/dL (8.6-10.3) L 12/15/18 05:13 Total Bilirubin 1.4 mg/dL (0.3-1.0) H 12/15/18 05:13 Direct Bilirubin 0.3 mg/dL (0.0-0.2) H 12/14/18 16:23 Indirect Bilirubin 1.7 mg/dL (0.0-1.2) H 12/14/18 16:23 AST 12 Units/L (13-39) L 12/15/18 05:13 Serum Total Protein 5.9 g/dL (6.4-8.9) L 12/15/18 05:13 Albumin 3.3 g/dL (3.5-5.7) L 12/15/18 05:13 Lipase 6 Units/L (11-82) L 12/14/18 16:23 Urine Protein 30 mg/dL (Neg-Trace) H 12/14/18 16:24 Urine Ketones Trace mg/dL (Negative) H 12/14/18 16:24 Urine Blood Trace (Negative) H 12/14/18 16:24 Ur Leukocyte Esterase Moderate (Negative) H 12/14/18 16:24 Urine Microscopic WBC 30-50 per hpf (0-3) H 12/14/18 16:24 Urine Yeast Few per hpf (None Seen) H 12/14/18 16:24 Ur Culture Indicated? YES (NO) A 12/14/18 16:24 Diabetes panel 12/15/18 Range/Units 05:13 Sodium 137 (136-145) mEq/L Potassium 3.8 (3.5-5.1) mEq/L Chloride 110 H (98-107) mEq/L Carbon Dioxide 28 (23-29) mEq/L BUN 11 (8-23) mg/dL Creatinine 0.89 (0.70-1.30) mg/dL Glucose 100 (70-105) mg/dL Calcium 7.9 L (8.6-10.3) mg/dL AST 12 L (13-39) Units/L ALT 9 (7-52) Units/L Alkaline Phosphatase 64 (34-104) Units/L Albumin 3.3 L (3.5-5.7) g/dL Calcium panel 12/15/18 Range/Units 05:13 Calcium 7.9 L (8.6-10.3) mg/dL Albumin 3.3 L (3.5-5.7) g/dL Pituitary panel 12/15/18 Range/Units 05:13 Sodium 137 (136-145) mEq/L Potassium 3.8 (3.5-5.1) mEq/L Chloride 110 H (98-107) mEq/L Carbon Dioxide 28 (23-29) mEq/L BUN 11 (8-23) mg/dL Creatinine 0.89 (0.70-1.30) mg/dL Glucose 100 (70-105) mg/dL Calcium 7.9 L (8.6-10.3) mg/dL Adrenal panel 12/15/18 Range/Units 05:13 Sodium 137 (136-145) mEq/L Potassium 3.8 (3.5-5.1) mEq/L Chloride 110 H (98-107) mEq/L Carbon Dioxide 28 (23-29) mEq/L BUN 11 (8-23) mg/dL Creatinine 0.89 (0.70-1.30) mg/dL Glucose 100 (70-105) mg/dL Calcium 7.9 L (8.6-10.3) mg/dL Total Bilirubin 1.4 H (0.3-1.0) mg/dL AST 12 L (13-39) Units/L ALT 9 (7-52) Units/L Alkaline Phosphatase 64 (34-104) Units/L Albumin 3.3 L (3.5-5.7) g/dL All other labs normal.
[2018-12-15] MEDS ORDERED: Ketorolac 15 MG/ML VIAL IVP PRN (11:50)
[2018-12-16] MEDS: Gabapentin 400 MG CAPSULE PO SCH ×3 (00:03→16:00)
[2018-12-16 04:49] LABS: Basophils % 0.3 %; Eosinophils # 0.3 K/mcL (0.0-0.6); Hematocrit 35.2 % (37.5-50.1); Hemoglobin 11.5 g/dL (12.9-16.9); Immature Granulocytes % 0.4 % (0-4); Lymphocytes # 2.6 K/mcL (0.6-4.6); Lymphocytes % 25.6 %; Mean Corpuscular HGB Conc 32.7 g/dL (31.6-35.5); Mean Corpuscular Hemoglobin 31.7 pg (28.0-33.3); Mean Platelet Volume 11.4 fL (9.4-12.4); Monocytes # 0.9 K/mcL (0.0-1.3); Monocytes % 8.6 %; Neutrophils # 6.2 K/mcL (1.6-8.9); Platelet Count 192 K/mcL (140-400); Red Blood Count 3.63 M/mcL (4.19-5.50); Red Cell Distribution Width 12.4 % (11.5-14.5); Segmented Neutrophils % 62.1 %
[2018-12-16 05:06] LABS: BUN/Creatinine Ratio 14 (6-26); Blood Urea Nitrogen 11 mg/dL (8-23); Calcium 8.2 mg/dL (8.6-10.3); Carbon Dioxide 27 mEq/L (23-29); Chloride 105 mEq/L (98-107); Glucose 101 mg/dL (70-105); Magnesium 2.1 mg/dL (1.6-2.6); Osmolality,Calculated 286 (280-300); Phosphorous 1.8 mg/dL (2.7-4.5); Potassium 3.7 mEq/L (3.5-5.1); Sodium 138 mEq/L (136-145); eGFR For African Americans > 60 (> 60); eGFR For Non-African Americans > 60 (> 60)
[2018-12-16] MEDS: *HR* Heparin 5,000 UNIT/ML VIAL SQ SCH ×3 (05:49→20:52)
--- NOTE | 2018-12-16 08:10 | Internal Med Progress Note ---
Hospitalist Progress Note - Encounter Date of Encounter: 12/16/18 Time of Encounter: 10:00 - Subjective Interval History: No acute events overnight - Exam Vitals: Temp Pulse Resp BP Pulse Ox 98.7 F 90 16 121/65 96 12/16/18 07:15 12/16/18 07:15 12/16/18 07:15 12/16/18 07:15 12/16/18 07:15 Exam: General: Alert and oriented Skin:Normal color, no rash, no lesions. HEENT:EOM, pupils equal, round and reactive. Cardiovascular:Normal S1 & S2, no rubs, murmurs or gallops. No JVD. Pulse regular. Lungs:Normal breath sounds, no wheezes or crackles. Abdomen:Soft, non-tender, no rigidity. Extremities:No deformity, no edema or tenderness, no joint swelling or clubbing. Neurological:Normal cognition and motor skills. Pulses:Carotid and radial pulses normal +2. Rest of the physical exam is non contributory - Assessment and Plan (1) Sepsis Current Visit: Yes Status: Acute Assessment and Plan: Found to have tachycardia associated with leukocytosis. At this times was of infection suspected to be secondary to UTI. Continue IV fluids and ceftriaxone. Patient still has burning and suprapubic pain Urine cultures growing klebsiella. Continue current antibiotics. Urology following (2) UTI (urinary tract infection) Current Visit: Yes Status: Acute Assessment and Plan: Patient reporting pain at the end of voiding. Complains of dysuria, frequency and urgency. UA notable for moderate leukocyte esterase. Continue ceftriaxone. (3) Essential hypertension Current Visit: Yes Status: Chronic Assessment and Plan: Blood pressure stable. Resume home antihypertensives (4) Urinary retention Current Visit: Yes Status: Acute Assessment and Plan: Patient complains of dribbling and urinary retention. Complains he can't tolerate flomax Urology recs appreciated. Obtain badder scan (5) DVT prophylaxis Current Visit: Yes Status: Acute Assessment and Plan: Subcutaneous heparin - Time Spent with Patient Total time spent is greater than 50% in coordination of care (as documented) at patient's floor/unit and/or counseling patient: Internal Medicine: Result - Labs CBC & Chem 7: 12/16/18 03:51 12/16/18 03:51 Labs: Short CBC 12/16/18 Range/Units 03:51 WBC 10.0 (4.3-11.1) K/mcL Hgb 11.5 L (12.9-16.9) g/dL Hct 35.2 L (37.5-50.1) % Plt Count 192 (140-400) K/mcL Neutrophils # 6.2 (1.6-8.9) K/mcL BMP 12/16/18 03:51 Sodium 138 Potassium 3.7 Chloride 105 Carbon Dioxide 27 BUN 11 Creatinine 0.77 Glucose 101 Calcium 8.2 L - ABG Interpretation ABG results: PT/INR, D-dimer PT 13.5 Seconds (9.4-12.1) H 12/15/18 05:13 Consult Discharge Plan - Plan Referrals: Amita Dior, MARKETING SUPPORT COORDINATOR [Primary Care Provider] - (1) Sepsis Qualifiers: Sepsis type: sepsis due to unspecified organism Sepsis acute organ dysfunction status: unspecified Qualified Code(s): A41.9 - Sepsis, unspecified organism (2) UTI (urinary tract infection) Qualifiers: Urinary tract infection type: acute cystitis Hematuria presence: without hematuria Qualified Code(s): N30.00 - Acute cystitis without hematuria
[2018-12-16] MEDS ORDERED: Potassium Phosphate 44 MEQ in 0.9 % Sodium Chloride 250 ML IVPB ONE (08:30)
[2018-12-16] MEDS: cefTRIAXone 1,000 MG in 0.9 % Sodium Chloride Mini Bag 100 ML IVPB SCH (09:08)
--- NOTE | 2018-12-16 10:10 | Urology Progress Note ---
<Suzan Urbina N - Last Filed: 12/16/18 10:08> Date of Encounter: 12/16/18 Time of Encounter: 09:30 - Assessment and Plan (1) UTI (urinary tract infection) Status: Acute Assessment and plan: Patient is a 68-year-old male who presents with a Klebsiella oxytoca see urinary tract infection. Vital signs are stable and afebrile. White blood cell count has trended down to 10.0. Patient is receiving IV Rocephin. Patient will likely require an additional 10-14 days of oral culture sensitive antibiotics. Qualifiers: Urinary tract infection type: acute cystitis Hematuria presence: without hematuria Qualified Code(s): N30.00 - Acute cystitis without hematuria (2) BPH w urinary obs/LUTS Status: Acute Assessment and plan: Patient is a 68-year-old male who presents with BPH with lower urinary tract symptoms. Patient is still experiencing some urgency, but he seems to be doing well with tamsulosin thus far. Progress Note Narrative: Patient seen and examined sitting upright in bed in apparent distress. Patient reports continued headache and general malaise. He reports suprapubic discomfort is resolving, and he is still experiencing mild dysuria. He denies any gross hematuria, fever, flank pain or chills. Objective Initial Vital Signs Temp Pulse Resp BP Pulse Ox 99.5 F 115 20 113/62 98 12/14/18 15:53 12/14/18 15:53 12/14/18 15:53 12/14/18 15:53 12/14/18 15:53 - General physical appearance Present: no distress, no pain - Respiratory Present: normal expansion, normal respiratory effort - Abdomen Present: soft, non tender. Absent: distended - Integumentary Present: no rash, no abnormal pigmentation - Musculoskeletal Present: normal posture - Psychiatric Present: oriented to time, oriented to person, oriented to place, speech is normal, memory intact - Labs 12/16/18 03:51 12/16/18 03:51 Diabetes panel 12/16/18 Range/Units 03:51 Sodium 138 (136-145) mEq/L Potassium 3.7 (3.5-5.1) mEq/L Chloride 105 (98-107) mEq/L Carbon Dioxide 27 (23-29) mEq/L BUN 11 (8-23) mg/dL Creatinine 0.77 (0.70-1.30) mg/dL Glucose 101 (70-105) mg/dL Calcium 8.2 L (8.6-10.3) mg/dL Calcium panel 12/16/18 Range/Units 03:51 Calcium 8.2 L (8.6-10.3) mg/dL Phosphorus 1.8 L (2.7-4.5) mg/dL Pituitary panel 12/16/18 Range/Units 03:51 Sodium 138 (136-145) mEq/L Potassium 3.7 (3.5-5.1) mEq/L Chloride 105 (98-107) mEq/L Carbon Dioxide 27 (23-29) mEq/L BUN 11 (8-23) mg/dL Creatinine 0.77 (0.70-1.30) mg/dL Glucose 101 (70-105) mg/dL Calcium 8.2 L (8.6-10.3) mg/dL Adrenal panel 12/16/18 Range/Units 03:51 Sodium 138 (136-145) mEq/L Potassium 3.7 (3.5-5.1) mEq/L Chloride 105 (98-107) mEq/L Carbon Dioxide 27 (23-29) mEq/L BUN 11 (8-23) mg/dL Creatinine 0.77 (0.70-1.30) mg/dL Glucose 101 (70-105) mg/dL Calcium 8.2 L (8.6-10.3) mg/dL Consult Discharge Plan - Plan Instructions: Metoprolol (By mouth), Amoxicillin/Clavulanate Potassium (By mouth), Tamsulosin (By mouth), Fluticasone (Into the nose), Urinary Tract Infection in Men (DC) Referrals: Yakov Aguirre MD [Partnered Physician] - 01/07/19 9:00 am (Please follow up as shcedule...) Amita Dior CNP [Primary Care Provider] - 12/26/18 1:20 pm (Please follow up as schedule...) Prescriptions: Amoxicillin/Clavulanate [Augmentin] 875 mg PO BIDWM #20 tablet Prescription Printed Tamsulosin [Flomax] 0.4 mg PO DAILY #30 capsule Prescription Printed Fluticasone Propionate Nasal [Flonase] 50 mcg NS DAILY #1 bottle Prescription Printed Metoprolol [Lopressor] 12.5 mg PO BID #60 tablet Prescription Printed Saline Nasal [place] [[place] Nasal [place]] 2 spray NS Q2H PRN #1 bottle PRN Reason: Congestion Prescription Printed <Yakov Aguirre - Last Filed: 12/18/18 07:29> Date of Encounter: 12/18/18 - Assessment and Plan (1) UTI (urinary tract infection) Status: Resolved Assessment and plan: Patient was not evaluated by myself. Agree with physician library clerical assistant assessment and plan. Continue antibiotics for 10-14 days. Qualifiers: Urinary tract infection type: acute cystitis Hematuria presence: without hematuria Qualified Code(s): N30.00 - Acute cystitis without hematuria Objective Initial Vital Signs Temp Pulse Resp BP Pulse Ox 99.5 F 115 20 113/62 98 12/14/18 15:53 12/14/18 15:53 12/14/18 15:53 12/14/18 15:53 12/14/18 15:53 - Labs 12/17/18 00:47 12/17/18 02:10
--- NOTE | 2018-12-16 11:06 | Electrocardiograph Report ---
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
[2018-12-16] MEDS ORDERED: traMADol 50 MG TABLET PO PRN (13:37)
[2018-12-16] MEDS: Saline Nasal Spray 44 ML BOTTLE NS PRN ×2 (16:02→20:56)
[2018-12-17] MEDS: Gabapentin 400 MG CAPSULE PO SCH ×2 (00:16→08:47)
[2018-12-17 01:25] LABS: Basophils % 0.6 %; Eosinophils # 0.3 K/mcL (0.0-0.6); Hematocrit 39.6 % (37.5-50.1); Hemoglobin 12.8 g/dL (12.9-16.9); Immature Granulocytes % 0.2 % (0-4); Lymphocytes # 2.1 K/mcL (0.6-4.6); Lymphocytes % 31.6 %; Mean Corpuscular HGB Conc 32.3 g/dL (31.6-35.5); Mean Corpuscular Hemoglobin 31.9 pg (28.0-33.3); Mean Corpuscular Volume 98.8 fL (83.0-100.0); Monocytes # 0.7 K/mcL (0.0-1.3); Monocytes % 10.5 %; Neutrophils # 3.5 K/mcL (1.6-8.9); Platelet Count 237 K/mcL (140-400); Red Blood Count 4.01 M/mcL (4.19-5.50); Red Cell Distribution Width 12.2 % (11.5-14.5); Segmented Neutrophils % 53.1 %; White Blood Count 6.6 K/mcL (4.3-11.1)
[2018-12-17 02:42] LABS: BUN/Creatinine Ratio 22 (6-26); Blood Urea Nitrogen 18 mg/dL (8-23); Calcium 8.5 mg/dL (8.6-10.3); Carbon Dioxide 25 mEq/L (23-29); Chloride 108 mEq/L (98-107); Glucose 102 mg/dL (70-105); Magnesium 2.1 mg/dL (1.6-2.6); Osmolality,Calculated 290 (280-300); Phosphorous 2.8 mg/dL (2.7-4.5); Sodium 139 mEq/L (136-145); eGFR For African Americans > 60 (> 60); eGFR For Non-African Americans > 60 (> 60)
[2018-12-17] MEDS: *HR* Heparin 5,000 UNIT/ML VIAL SQ SCH (05:49)
[2018-12-17] MEDS: cefTRIAXone 1,000 MG in 0.9 % Sodium Chloride Mini Bag 100 ML IVPB SCH (08:51)
[2018-12-17] MEDS ORDERED: traMADol 50 MG TABLET PO PRN (09:48)
[2018-12-17 11:27] VITALS: BP 149/80
--- NOTE | 2018-12-17 11:48 | Discharge Summary ---
- NOTES TO OUTPATIENT PROVIDER Notes to Outpatient Provider: Patient was admitted for UTI and dysuria. He was treated with antibiotics and he will follow-up with urology as outpatient. He is taking Lopressor was daily and lisinopril twice daily for his blood pressure. I made his Lopressor twice daily and this improved once daily and he is going to discuss that with you. Orders not resulted at time of discharge: Pending orders 12/14/18 17:08 Culture,Blood [BC] Stat Date of Encounter: 12/17/18 Time of Encounter: 10:30 - Discharge Diagnosis (1) Sepsis Priority: Primary Status: Resolved Qualifiers: Sepsis type: sepsis due to unspecified organism Sepsis acute organ dysfunction status: unspecified Qualified Code(s): A41.9 - Sepsis, unspecified organism (2) UTI (urinary tract infection) Priority: Secondary Status: Resolved Qualifiers: Urinary tract infection type: acute cystitis Hematuria presence: without hematuria Qualified Code(s): N30.00 - Acute cystitis without hematuria (3) Essential hypertension Priority: Secondary Status: Chronic (4) Urinary retention Priority: Secondary Status: Acute (5) DVT prophylaxis Priority: Secondary Status: Acute Hospital course: Mr. Kuhn is a 68 year old male with history of BPH who came into the hospital due to dysuria and was treated for sepsis related to UTI with Klebsiella. Patient was hemodynamically stable, afebrile and his leukocytosis resolved during hospitalization on IV Rocephin. Urology service was consulted and patient was placed on Flomax which he stopped in the past due to leg pain. His initial CT scan of the abdomen revealed signs of active pancreatitis however his lipase was normal and his abdominal exam was benign and he had no characteristic pancreatic abdominal pain. Today, patient is clinically stable, his dysuria improved. He will be discharged home in stable condition. He is to take Lopressor once daily for his blood pressure and lisinopril twice daily. I consulted him to take Lopressor twice daily and his temperature was daily which she is going to discuss with his primary care doctor. Discharge discussed with: patient - Time Spent with Patient Total time spent providing and/or coordinating discharge services: 45 minutes - Discharge Medications Prescriptions: New Amoxicillin/Clavulanate [Augmentin] 875 mg PO BIDWM #20 tablet Tamsulosin [Flomax] 0.4 mg PO DAILY #30 capsule Fluticasone Propionate Nasal [Flonase] 50 mcg NS DAILY #1 bottle Metoprolol [Lopressor] 12.5 mg PO BID #60 tablet Saline Nasal [place] [[place] Nasal Tully] 2 spray NS Q2H PRN #1 bottle PRN Reason: Congestion Continued Clorazepate [Tranxene] 7.5 mg PO 0800,1600,0000 Gabapentin [Neurontin] 400 mg PO 0800,1600,0000 Lisinopril [Zestril] 10 mg PO DAILY@0800 Discontinued Metoprolol [Lopressor] 12.5 mg PO DAILY Lisinopril 2.5 mg PO HS Home Medications: Clorazepate [Tranxene] 7.5 mg PO 0800,1600,0000 11/05/16 [History] Gabapentin [Neurontin] 400 mg PO 0800,1600,0000 11/05/16 [History] Lisinopril [Zestril] 10 mg PO DAILY@0800 12/14/18 [History] Amoxicillin/Clavulanate [Augmentin] 875 mg PO BIDWM #20 tablet 12/17/18 [Rx] Fluticasone Propionate Nasal [Flonase] 50 mcg NS DAILY #1 bottle 12/17/18 [Rx] Metoprolol [Lopressor] 12.5 mg PO BID #60 tablet 12/17/18 [Rx] Saline Nasal [place] [[place] Nasal Tully] 2 spray NS Q2H PRN #1 bottle 12/17/18 [Rx] Tamsulosin [Flomax] 0.4 mg PO DAILY #30 capsule 12/17/18 [Rx] Allergies/Adverse Reactions: Allergy/AdvReac Type Severity Reaction Status Date / Time No Known Allergies Allergy Verified 09/27/17 13:51 Date of admission: 12/16/18 15:35 Primary care physician: Amita Dior Consults: 12/15/18 10:27 Consult to Urology [CONS] Routine Consulting Provider: Urology Gretchen Reason for Consult: complicated UTI with reports of dribbling, urgency query BPH Call Completed: No - Constitutional Vitals: Temp Pulse Resp BP Pulse Ox 99.4 F 91 16 149/80 96 12/17/18 11:22 12/17/18 11:22 12/17/18 11:22 12/17/18 11:12/17/18 11:22 Exam: General: Alert and oriented Skin:Normal color, no rash, no lesions. HEENT:EOM, pupils equal, round and reactive. Cardiovascular:Normal S1 & S2, no rubs, murmurs or gallops. No JVD. Pulse regular. Lungs:Normal breath sounds, no wheezes or crackles. Abdomen:Soft, non-tender, no rigidity. Extremities:No deformity, no edema or tenderness, no joint swelling or clubbing. Neurological:Normal cognition and motor skills. Pulses:Carotid and radial pulses normal +2. Rest of the physical exam is non contributory - Patient Status Disposition: Home, Self-Care Functional capacity at discharge: independent ambulation Overall status at discharge: patient is back to baseline - Discharge Instructions Follow Up With: Yakov Aguirre MD [Partnered Physician] - 01/07/19 9:00 am (Please follow up as shcedule...) Amita Dior CNP [Primary Care Provider] - 12/26/18 1:20 pm (Please follow up as schedule...) - Diet and Activity Activity: increase activity as tolerated Diet: low salt diet
== END 2018-12-17 12:47 | disposition home or self-care (01) | DRG 872 ==
LOC: 2ANU 15:50 → EMEROOARM 15:50 → 2ANU 19:04 → SUATTDRO 12-16 15:35
PROVIDERS: ADMIT Pharmacist; ATTEND Internal Medicine